=== PATIENT | female | born 1995 | race Caucasian/White ===

== ENCOUNTER 2016-07-15 09:29 | Outpatient (RCR) | payer MEDICARE, MEDICAID, SELFPAY | END 2016-08-03 | LOC: PHYS 09:29 | PROVIDERS: Family Provider Family Medicine; PCP Family Medicine; Referring Provider Podiatrist; Visit Provider Podiatrist | DX: M72.2 Plantar fascial fibromatosis (principal) | CPT/HCPCS: 97035; 97110; 97140; 97161; G8978; G8979 ==

== ENCOUNTER 2017-08-23 16:09 | Emergency (ER) | payer MEDICARE, MEDICAID, SELFPAY ==
[2017-08-23 16:14] VITALS: BP 127/75; PULSE 93; RESP 22; O2SAT 100
--- NOTE | 2017-08-23 16:39 | ED.ABDPAIN ---
HPI - Abdominal Pain <Radha AlejandreANDREWP-BC - Last Filed: 08/23/17 23:10> General Chief Complaint: Abdominal Pain Stated Complaint: POSSIBLE CYST BURST Time Seen by Provider: 08/23/17 16:20 Source: patient and family Mode of arrival: ambulatory Limitations: no limitations History of Present Illness HPI narrative: Patient presented with chief complaint of lower abdominal pain. This started approximately 2-3 p.m.. His history of ovarian cyst and feel like this may be another one. She denies any fevers, cough, shortness of breath or congestion. She denies any other abdominal pain other than her lower stomach. She states the pain is on the right side into the center. She denies any vaginal bleeding, vaginal itching or urinary symptoms. Although she does state was hard to urinate earlier today because of the pain. She denies any frequency, urgency or hesitancy. She has history of an appendectomy. She does state she had unprotected sex a few weeks ago. Related Data Home Medications Medication Instructions Recorded Confirmed albuterol sulfate [Proventil HFA] 1 puff INH PRN #17 gm 11/04/11 08/23/17 ibuprofen 200 mg PO PRN PRN #0 11/24/12 08/23/17 norgestimate-ethinyl estradiol 1 tab PO QDAY #0 12/06/16 08/23/17 [Sprintec (28)] dexamethasone 0.25 mg PO HS 08/23/17 08/23/17 hydrocortisone 25 mg PO DAILY 08/23/17 08/23/17 Previous Rx's Medication Instructions Recorded levothyroxine 0.088 mg PO QDAY #90 tab 12/27/16 ondansetron 4 mg SUBLINGUAL Q4HP PRN #60 odt 12/27/16 hydrocortisone sod succ (PF) 100 mg IV PRN #1 vial 03/21/17 [Solu-Cortef (PF)] mupirocin 1 devyn TOPICAL BID #22 gm 03/21/17 rizatriptan [Maxalt] 10 mg PO QDAY #10 tab 03/21/17 sertraline 200 mg PO QDAY #60 tab 06/12/17 nitrofurantoin macrocrystal 100 mg PO BID 7 Days #14 cap 08/23/17 oxycodone 5 mg PO Q4-6H PRN #10 tab 08/23/17 Allergies Allergy/AdvReac Type Severity Reaction Status Date / Time hydromorphone [HYDROMORPHONE] Allergy Mild RESP Verified 08/23/17 16:18 DISTRESS adhesive tape Allergy Unknown Rash Verified 08/23/17 16:43 Review of Systems <Radha [facility] - Last Filed: 08/23/17 23:10> Review of Systems GENERAL: See HPI HEENT: Denies sinus pain, ear pain, sore throat, difficulty swallowing, dizziness. RESPIRATORY: Denies dyspnea, cough, wheezing, hemoptysis, sputum. CARDIOVASCULAR: Denies chest pain, palpitations, orthopnea, edema, GASTROINTESTINAL: See HPI : See HPI n. MUSCULOSKELETAL: denies weakness, joint pain, or bony pain SKIN: Denies rash, skin lesions, or other NEUROLOGIC: Denies weakness, headache, numbness, change in speech, confusion, seizures, incoordination. PSYCHIATRIC: No concerning psychosocial issues. 12 point review of systems is negative except for those stated above Exam <[facility] - Last Filed: 08/23/17 23:10> Narrative Exam Narrative: GENERAL: This is a well-nourished, well-developed patient, crying HEAD: Atraumatic. Normocephalic. No temporal or scalp tenderness. EYES: Pupils equal round and reactive. Extraocular motions intact. No scleral icterus. No injection or drainage. ENT: Nose without bleeding, purulent drainage or septal hematoma. Throat without erythema, tonsillar hypertrophy or exudate. Uvula midline. Airway patent. NECK: Trachea midline. No JVD or lymphadenopathy. Supple, nontender, no meningeal signs. CARDIOVASCULAR: Regular rate and rhythm without murmurs, gallops, or rubs. RESPIRATORY: Clear to auscultation. Breath sounds equal bilaterally. No wheezes, rales, or rhonchi. GASTROINTESTINAL: Abdomen soft, no guarding. Generalized pain to palpation lower right and lower left quadrants. No CVA tenderness. Bowel sounds active all 4 quadrants. EXTREMITIES: No clubbing, cyanosis, or edema. No joint tenderness, effusion, or edema noted. BACK: Nontender without deformity or crepitance. No flank tenderness. NEURO: AOx3. SKIN: No rash or erythema. Patient declined pelvic exam. Initial Vital Signs Initial Vital Signs: Vital Signs Pulse Rate 93 H 08/23/17 16:14 Respiratory Rate 22 08/23/17 16:14 Blood Pressure 127/75 H 08/23/17 16:14 Pulse Oximetry 100 08/23/17 16:14 <Kimo Smith DO - Last Filed: 08/24/17 07:00> Initial Vital Signs Initial Vital Signs: Vital Signs Pulse Rate 93 H 08/23/17 16:14 Respiratory Rate 22 08/23/17 16:14 Blood Pressure 127/75 H 08/23/17 16:14 Pulse Oximetry 100 08/23/17 16:14 Course <Radha Alejandre [employer]-BC - Last Filed: 08/23/17 23:10> Hospital Course: Patient presents with lower abdominal pain. She had an IV inserted and received morphine for pain which helped a lot. A UA was obtained. A CBC CMP and lipase were drawn. WBCs noted to be slightly elevated. Urine GC and Chlamydia were completed and negative.. A urinalysis was completed and was concerning for an infection. A pelvic ultrasound was done and concerning for hemorrhagic cyst.. The patient received a L of IVF as well as two doses of morphine in her stay. I checked on the patient and mother several times throughout her emergency department stay. Patient declined pelvic exam. Patient also declined CT scan. They plan on following up with her primary care provider tomorrow. They had no questions or concerns upon discharge and stated understanding of return precautions including worsening pain, fever. Orders Ordered: Discontinued Medications Sodium Chloride (Normal Saline 0.9%) 1,000 mls @ 150 mls/hr IV CONT MO Last Infusion: 08/23/17 20:08 Dose: 150 mls/hr Admin: 08/23/17 17:14 Dose: 150 mls/hr Morphine Sulfate (Morphine) 2 mg IV NOW ONE Stop: 08/23/17 16:41 Last Admin: 08/23/17 17:14 Dose: 2 mg Morphine Sulfate (Morphine) 2 mg IV NOW ONE Stop: 08/23/17 18:30 Last Admin: 08/23/17 19:25 Dose: 2 mg Vital Signs - 8 hr 08/23/17 16:14 08/23/17 18:16 08/23/17 19:22 Pulse Rate 93 H 65 58 L Respiratory Rate 22 16 Blood Pressure 127/75 H Blood Pressure [Left Arm] 118/61 107/59 L Pulse Oximetry 100 100 97 08/23/17 20:00 Pulse Rate 54 L Respiratory Rate 15 Blood Pressure Blood Pressure [Left Arm] 112/46 L Pulse Oximetry 98 <Kimo Smith DO - Last Filed: 08/24/17 07:00> Orders Ordered: Discontinued Medications Sodium Chloride (Normal Saline 0.9%) 1,000 mls @ 150 mls/hr IV CONT MO Last Infusion: 08/23/17 20:08 Dose: 150 mls/hr Admin: 08/23/17 17:14 Dose: 150 mls/hr Morphine Sulfate (Morphine) 2 mg IV NOW ONE Stop: 08/23/17 16:41 Last Admin: 08/23/17 17:14 Dose: 2 mg Morphine Sulfate (Morphine) 2 mg IV NOW ONE Stop: 08/23/17 18:30 Last Admin: 08/23/17 19:25 Dose: 2 mg Vital Signs - 8 hr 08/23/17 16:14 08/23/17 18:16 08/23/17 19:22 Pulse Rate 93 H 65 58 L Respiratory Rate 22 16 Blood Pressure 127/75 H Blood Pressure [Left Arm] 118/61 107/59 L Pulse Oximetry 100 100 97 08/23/17 20:00 Pulse Rate 54 L Respiratory Rate 15 Blood Pressure Blood Pressure [Left Arm] 112/46 L Pulse Oximetry 98 MDM - Abdominal Pain <CAREN Motley- - Last Filed: 08/23/17 23:10> Differential Diagnosis Differential diagnosis: Likely abdominal pain and acute appendicitis Lab Data Attestation: I reviewed the patient's lab results. Result diagrams: 08/23/17 17:10 08/23/17 17:10 Lab Results 08/23/17 08/23/17 08/23/17 Range/Units 17:10 17:10 17:15 WBC 13.7 H (4.5-11.0) X10^3/uL RBC 4.85 (4.0-5.2) X10^6/uL Hgb 13.9 (12.0-16.0) g/dL Hct 41.2 (36-46) % MCV 84.9 (80-100) fL MCH 28.6 (26-34) PG MCHC 33.7 (30-36) % RDW 13.5 (11.6-14.8) % Plt Count 274 (150-400) X10^3/uL Neut % (Auto) 69.6 (50-75) % Lymph % (Auto) 20.4 L (25-40) % Gladwin % (Auto) 7.5 (3-14) % Eos % (Auto) 1.7 L (2-4) % Baso % (Auto) 0.8 (0-2) % Neut # (Auto) 9600 H (7317-8496) /uL Sodium 140 (137-145) mmol/L Potassium 4.2 (3.4-5.1) mmol/L Chloride 105 (98-107) mmol/L Carbon Dioxide 23 (22-32) mmol/L BUN 9 (7-17) mg/dL Creatinine 0.60 (0.52-1.04) mg/dL Estimated GFR > 60.0 (>60) mL/min BUN/Creatinine Ratio 15.0 (6-22) Glucose 94 (70-100) mg/dL Calcium 9.6 (8.4-10.2) mg/dL Total Bilirubin 0.7 (0.2-1.3) mg/dL AST 18 (14-36) IU/L ALT 16 (9-52) IU/L Alkaline Phosphatase 74 (38-126) U/L Total Protein 7.9 (6.3-8.2) g/dL Albumin 4.4 (3.5-5.0) g/dL Globulin 3.5 (1.7-4.1) g/dL Albumin/Globulin Ratio 1.3 (1.0-2.8) Lipase 63 (23-300) U/L Ur Chlamydia DNA (PCR) Not detected N gonorrhoeae DNA (PCR) Not detected Imaging Data US - abdomen: Radiologist's impression: View Report History [address] [address] Ultrasound Report Signed Patient: Slim Mckeon MR#: [id number] : 1995 Acct:[id number] Age/Sex: 21 / F Date of Service: 08/23/17 Loc: ED Accession Number: [id number] Procedure: US pelvic complete Ordering Provider: Radha Alejandre [employer]-BC PROCEDURE: US PELVIC COMPLETE INDICATIONS: RLQ pain TECHNIQUE: Real-time scanning was performed of the pelvic organs, with image documentation. Additional endovaginal scanning was necessary due to incomplete visualization of the adnexal and endometrial structures by transabdominal scanning. COMPARISON: [facility], CT, ABDOMEN/PELVIS WITH CONTRAST, 11/24/2012, 15:06. FINDINGS: Transabdominal scanning: Limited scanning through the kidneys shows no hydronephrosis. No pathologic free abdominal or pelvic fluid. Endovaginal scanning: Uterus: Uterus is normal in size at 7.0 x 3.4 x 4.4 cm. The endometrium measures 10 mm in combined thickness. Cervix is unremarkable. No focal myometrial lesions are evident. Ovaries: The right ovary is enlarged and measures 6.3 x 3.1 x 3.4 cm, related to an echogenic probable cystic structure of the right ovary that measures 3.2 x 2.2 x 3.2 cm. No internal vascularity is identified. The left ovary is borderline enlarged and measures 3.1 x 3.3 x 4.5 cm. Very small follicles are present. Other: A small amount of free fluid is seen within the pelvis, which is mildly echogenic. IMPRESSION: 1. Enlarged right ovary appears to be related to a probable hemorrhagic cyst. Followup pelvic ultrasound in 2-3 months is recommended. 2. Echogenic fluid within the pelvis may be physiologic. However, ruptured hemorrhagic cyst may also result in this appearance. The need for better evaluation utilizing CT may be determined clinically. Dictated by: Luis Enrique Chamberlain M.D. on 08/23/2017 at 17:57 Approved by: Luis Enrique Chamberlain M.D. on 08/23/2017 at 17:59 [facility] Narrative Medical decision making narrative: Patient presented with lower abdominal pain. Urine POC was negative. Her CBC was slightly elevated at 13.7. Otherwise her lab work was grossly normal. Her urine gonorrhea Chlamydia came back negative. Her pelvic ultrasound was concerning for a hemorrhagic ovarian cyst. Discussed at length free fluid in pelvis which could be physiologic due to ruptured cyst or another etiology. Mother and patient decline CT scan at this point time. Discussed at length return precautions including fever, worsening pain. Gave patient small prescription of oxycodone for pain control. Discussed monitoring for possible out torsion and being re-evaluated if pain becomes worse. Patient's urinalysis came back with many bacteria. Patient was started on Macrobid and urine culture was sent. Discussed at length return precautions of fever, flank pain nausea vomiting or diarrhea. Discussed at length reasons for pelvic exam and CT scan and patient declined both. Plan to follow up with primary care provider tomorrow. <Kimo Smith DO - Last Filed: 08/24/17 07:00> Lab Data Lab Results 08/23/17 08/23/17 08/23/17 Range/Units 17:10 17:10 17:15 WBC 13.7 H (4.5-11.0) X10^3/uL RBC 4.85 (4.0-5.2) X10^6/uL Hgb 13.9 (12.0-16.0) g/dL Hct 41.2 (36-46) % MCV 84.9 (80-100) fL MCH 28.6 (26-34) PG MCHC 33.7 (30-36) % RDW 13.5 (11.6-14.8) % Plt Count 274 (150-400) X10^3/uL Neut % (Auto) 69.6 (50-75) % Lymph % (Auto) 20.4 L (25-40) % Gladwin % (Auto) 7.5 (3-14) % Eos % (Auto) 1.7 L (2-4) % Baso % (Auto) 0.8 (0-2) % Neut # (Auto) 9600 H (5822-8388) /uL Sodium 140 (137-145) mmol/L Potassium 4.2 (3.4-5.1) mmol/L Chloride 105 (98-107) mmol/L Carbon Dioxide 23 (22-32) mmol/L BUN 9 (7-17) mg/dL Creatinine 0.60 (0.52-1.04) mg/dL Estimated GFR > 60.0 (>60) mL/min BUN/Creatinine Ratio 15.0 (6-22) Glucose 94 (70-100) mg/dL Calcium 9.6 (8.4-10.2) mg/dL Total Bilirubin 0.7 (0.2-1.3) mg/dL AST 18 (14-36) IU/L ALT 16 (9-52) IU/L Alkaline Phosphatase 74 (38-126) U/L Total Protein 7.9 (6.3-8.2) g/dL Albumin 4.4 (3.5-5.0) g/dL Globulin 3.5 (1.7-4.1) g/dL Albumin/Globulin Ratio 1.3 (1.0-2.8) Lipase 63 (23-300) U/L Ur Chlamydia DNA (PCR) Not detected N gonorrhoeae DNA (PCR) Not detected Discharge Plan Departure Patient Disposition: Home, Self-Care Clinical Impression: Urinary tract infection, Ovarian cyst Discharge Date/Time: 08/23/17 20:28 Interventions: ED Discharge Assessment Last Done: 08/23/17 20:37 Instructions: DI for Urinary Tract Infection (UTI), DI for Ovarian Cyst Activity Restrictions/Additional Instructions: I am starting you on a medication that is an antibiotic for a urinary tract infection. I am also giving her a small prescription of pain medication for your ovarian cyst. Please follow-up with her primary care provider. I would call them tomorrow. Today you declined a pelvic exam as well as a CT scan. If you have worsening pain, flank pain, fevers nausea vomiting diarrhea I would like you to be re-evaluated. We discussed the options of an ovarian torsion, Pelvic inflammatory disease, or kidney infection. If you are feeling worse or not feeling better, I would like you to follow up with her primary care provider or come back to the emergency department if needed. Be aware that the oxycodone can make you sleepy or constipated. Prescriptions: New nitrofurantoin macrocrystal 100 mg capsule 100 mg PO BID 7 Days Qty: 14 RF: 0 oxycodone 5 mg tablet 5 mg PO Q4-6H PRN (Reason: pain) Qty: 10 RF: 0 No Action albuterol sulfate [Proventil HFA] 90 MCG/PUFF HFA aerosol inhaler 1 puff INH PRN Qty: 17 RF: 0 ibuprofen 200 MG tablet 200 mg PO PRN PRN (Reason: Pain, Mild) Qty: 0 RF: 0 norgestimate-ethinyl estradiol [Sprintec (28)] 1 EACH tablet 1 tab PO QDAY Qty: 0 RF: 0 ondansetron 4 MG tablet,disintegrating 4 mg Sublingual Q4HP PRNQty: 60 RF: 3 levothyroxine 88 MCG tablet 0.088 mg PO QDAY Qty: 90 RF: 3 rizatriptan [Maxalt] 10 MG tablet 10 mg PO QDAY Qty: 10 RF: 0 mupirocin 2 % ointment 1 devyn Topical BID Qty: 22 RF: 0 hydrocortisone sod succ (PF) [Solu-Cortef (PF)] 100 MG/2 ML recon soln 100 mg IV PRN Qty: 1 RF: 0 sertraline 100 MG tablet 200 mg PO QDAY Qty: 60 RF: 0 hydrocortisone 5 MG tablet 25 mg PO DAILY RF: 0 dexamethasone 0.5 MG tablet 0.25 mg PO HS RF: 0 <Kimo Smith DO - Last Filed: 08/24/17 07:00> [facility] Kaveh Attestation: I was available for consultation during this patient's emergency department encounter
--- NOTE | 2017-08-23 16:42 | DI.US.S_ITS ---
PROCEDURE: US PELVIC COMPLETE INDICATIONS: RLQ pain TECHNIQUE: Real-time scanning was performed of the pelvic organs, with image documentation. Additional endovaginal scanning was necessary due to incomplete visualization of the adnexal and endometrial structures by transabdominal scanning. COMPARISON: [facility], CT, ABDOMEN/PELVIS WITH CONTRAST, 11/24/2012, 15:06. FINDINGS: Transabdominal scanning: Limited scanning through the kidneys shows no hydronephrosis. No pathologic free abdominal or pelvic fluid. Endovaginal scanning: Uterus: Uterus is normal in size at 7.0 x 3.4 x 4.4 cm. The endometrium measures 10 mm in combined thickness. Cervix is unremarkable. No focal myometrial lesions are evident. Ovaries: The right ovary is enlarged and measures 6.3 x 3.1 x 3.4 cm, related to an echogenic probable cystic structure of the right ovary that measures 3.2 x 2.2 x 3.2 cm. No internal vascularity is identified. The left ovary is borderline enlarged and measures 3.1 x 3.3 x 4.5 cm. Very small follicles are present. Other: A small amount of free fluid is seen within the pelvis, which is mildly echogenic. IMPRESSION: 1. Enlarged right ovary appears to be related to a probable hemorrhagic cyst. Followup pelvic ultrasound in 2-3 months is recommended. 2. Echogenic fluid within the pelvis may be physiologic. However, ruptured hemorrhagic cyst may also result in this appearance. The need for better evaluation utilizing CT may be determined clinically. Dictated by: Luis Enrique Chamberlain M.D. on 08/23/2017 at 17:57 Approved by: Luis Enrique Chamberlain M.D. on 08/23/2017 at 17:59
[2017-08-23] MEDS: SODIUM CHLORIDE 0.9% 1,000 ML 150 ML IV (17:14)
[2017-08-23] MEDS: MORPHINE 2 MG/ML INJ IV ×2 (17:14→19:25)
[2017-08-23 17:18] LABS: Add Manual Diff / Slide Review NO; Basophils Percent Auto 0.8 % (0-2); Eosinophils Percent Auto 1.7 % (2-4); Hematocrit 41.2 % (36-46); Hemoglobin 13.9 g/dL (12.0-16.0); Lymphocytes Percent Auto 20.4 % (25-40); Mean Corpuscular HGB Conc 33.7 % (30-36); Mean Corpuscular Hemoglobin 28.6 PG (26-34); Mean Corpuscular Volume 84.9 fL (80-100); Monocytes Percent Auto 7.5 % (3-14); Neutrophils Absolute Auto 9600 /uL (3000-5900); Neutrophils Percent Auto 69.6 % (50-75); Platelet Count 274 X10^3/uL (150-400); Red Blood Cell Count 4.85 X10^6/uL (4.0-5.2); Red Cell Distribution Width 13.5 % (11.6-14.8); White Blood Cell Count 13.7 X10^3/uL (4.5-11.0)
--- NOTE | 2017-08-23 17:25 | PC.NURSE ---
standby by with callie for US in room. pt tolerated well.
[2017-08-23 17:30] LABS: Alanine Aminotransferase 16 IU/L (9-52); Albumin 4.4 g/dL (3.5-5.0); Albumin Globulin Ratio 1.3 (1.0-2.8); Alkaline Phosphatase 74 U/L (38-126); Aspartate Aminotransferase 18 IU/L (14-36); Bilirubin Total 0.7 mg/dL (0.2-1.3); Blood Urea Nitrogen 9 mg/dL (7-17); Calcium 9.6 mg/dL (8.4-10.2); Carbon Dioxide 23 mmol/L (22-32); Chloride 105 mmol/L (98-107); Estimated Glomerular Filt Rate > 60.0 mL/min (>60); Globulin 3.5 g/dL (1.7-4.1); Glucose 94 mg/dL (70-100); HEMOLYSIS 31 (0-50); Lipase 63 U/L (23-300); Potassium 4.2 mmol/L (3.4-5.1); Sodium 140 mmol/L (137-145); Total Protein 7.9 g/dL (6.3-8.2)
--- NOTE | 2017-08-23 18:15 | PC.NURSE ---
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 denies vaginal discharges.
[2017-08-23 18:16] VITALS: BP 118/61; PULSE 65; RESP 16; O2SAT 100
[2017-08-23 18:52] LABS: Urine N gonorrhoeae NOT DETECTED
[2017-08-23 19:05] LABS: Urine Chlamydia NOT DETECTED
[2017-08-23 19:22] VITALS: BP 107/59; PULSE 58; O2SAT 97
[2017-08-23 20:00] VITALS: BP 112/46; PULSE 54; RESP 15; O2SAT 98
--- NOTE | 2017-08-23 20:07 | ED_ITS ---
HPI - Abdominal Pain <Radha AlejandreANDREWP-BC - Last Filed: 08/23/17 23:10> General Chief Complaint: Abdominal Pain Stated Complaint: POSSIBLE CYST BURST Time Seen by Provider: 08/23/17 16:20 Source: patient and family Mode of arrival: ambulatory Limitations: no limitations History of Present Illness HPI narrative: Patient presented with chief complaint of lower abdominal pain. This started approximately 2-3 p.m.. His history of ovarian cyst and feel like this may be another one. She denies any fevers, cough, shortness of breath or congestion. She denies any other abdominal pain other than her lower stomach. She states the pain is on the right side into the center. She denies any vaginal bleeding, vaginal itching or urinary symptoms. Although she does state was hard to urinate earlier today because of the pain. She denies any frequency , urgency or hesitancy. She has history of an appendectomy. She does state she had unprotected sex a few weeks ago. Related Data Home Medications Medication Instructions Recorded Confirmed albuterol sulfate [Proventil HFA] 1 puff INH PRN #17 gm 11/04/11 08/23/17 ibuprofen 200 mg PO PRN PRN #0 11/24/12 08/23/17 norgestimate-ethinyl estradiol 1 tab PO QDAY #0 12/06/16 08/23/17 [Sprintec (28)] dexamethasone 0.25 mg PO HS 08/23/17 08/23/17 hydrocortisone 25 mg PO DAILY 08/23/17 08/23/17 Previous Rx's Medication Instructions Recorded levothyroxine 0.088 mg PO QDAY #90 tab 12/27/16 ondansetron 4 mg SUBLINGUAL Q4HP PRN #60 odt 12/27/16 hydrocortisone sod succ (PF) 100 mg IV PRN #1 vial 03/21/17 [Solu-Cortef (PF)] mupirocin 1 devyn TOPICAL BID #22 gm 03/21/17 rizatriptan [Maxalt] 10 mg PO QDAY #10 tab 03/21/17 sertraline 200 mg PO QDAY #60 tab 06/12/17 nitrofurantoin macrocrystal 100 mg PO BID 7 Days #14 cap 08/23/17 oxycodone 5 mg PO Q4-6H PRN #10 tab 08/23/17 Allergies Allergy/AdvReac Type Severity Reaction Status Date / Time hydromorphone [HYDROMORPHONE] Allergy Mild RESP Verified 08/23/17 16:18 DISTRESS adhesive tape Allergy Unknown Rash Verified 08/23/17 16:43 Review of Systems <Radha CAR[facility] - Last Filed: 08/23/17 23:10> Review of Systems GENERAL: See HPI HEENT: Denies sinus pain, ear pain, sore throat, difficulty swallowing, dizziness. RESPIRATORY: Denies dyspnea, cough, wheezing, hemoptysis, sputum. CARDIOVASCULAR: Denies chest pain, palpitations, orthopnea, edema, GASTROINTESTINAL: See HPI : See HPI n. MUSCULOSKELETAL: denies weakness, joint pain, or bony pain SKIN: Denies rash, skin lesions, or other NEUROLOGIC: Denies weakness, headache, numbness, change in speech, confusion, seizures, incoordination. PSYCHIATRIC: No concerning psychosocial issues. 12 point review of systems is negative except for those stated above Exam <[facility] - Last Filed: 08/23/17 23:10> Narrative Exam Narrative: GENERAL: This is a well-nourished, well-developed patient, crying HEAD: Atraumatic. Normocephalic. No temporal or scalp tenderness. EYES: Pupils equal round and reactive. Extraocular motions intact. No scleral icterus. No injection or drainage. ENT: Nose without bleeding, purulent drainage or septal hematoma. Throat without erythema, tonsillar hypertrophy or exudate. Uvula midline. Airway patent. NECK: Trachea midline. No JVD or lymphadenopathy. Supple, nontender, no meningeal signs. CARDIOVASCULAR: Regular rate and rhythm without murmurs, gallops, or rubs. RESPIRATORY: Clear to auscultation. Breath sounds equal bilaterally. No wheezes , rales, or rhonchi. GASTROINTESTINAL: Abdomen soft, no guarding. Generalized pain to palpation lower right and lower left quadrants. No CVA tenderness. Bowel sounds active all 4 quadrants. EXTREMITIES: No clubbing, cyanosis, or edema. No joint tenderness, effusion, or edema noted. BACK: Nontender without deformity or crepitance. No flank tenderness. NEURO: AOx3. SKIN: No rash or erythema. Patient declined pelvic exam. Initial Vital Signs Initial Vital Signs: Vital Signs Pulse Rate 93 H 08/23/17 16:14 Respiratory Rate 22 08/23/17 16:14 Blood Pressure 127/75 H 08/23/17 16:14 Pulse Oximetry 100 08/23/17 16:14 <Kimo Smith DO - Last Filed: 08/24/17 07:00> Initial Vital Signs Initial Vital Signs: Vital Signs Pulse Rate 93 H 08/23/17 16:14 Respiratory Rate 22 08/23/17 16:14 Blood Pressure 127/75 H 08/23/17 16:14 Pulse Oximetry 100 08/23/17 16:14 Course <Radha Alejandre [employer]-BC - Last Filed: 08/23/17 23:10> Hospital Course: Patient presents with lower abdominal pain. She had an IV inserted and received morphine for pain which helped a lot. A UA was obtained. A CBC CMP and lipase were drawn. WBCs noted to be slightly elevated. Urine GC and Chlamydia were completed and negative.. A urinalysis was completed and was concerning for an infection. A pelvic ultrasound was done and concerning for hemorrhagic cyst.. The patient received a L of IVF as well as two doses of morphine in her stay. I checked on the patient and mother several times throughout her emergency department stay. Patient declined pelvic exam. Patient also declined CT scan. They plan on following up with her primary care provider tomorrow. They had no questions or concerns upon discharge and stated understanding of return precautions including worsening pain, fever. Orders Ordered: Discontinued Medications Sodium Chloride (Normal Saline 0.9%) 1,000 mls @ 150 mls/hr IV CONT MO Last Infusion: 08/23/17 20:08 Dose: 150 mls/hr Admin: 08/23/17 17:14 Dose: 150 mls/hr Morphine Sulfate (Morphine) 2 mg IV NOW ONE Stop: 08/23/17 16:41 Last Admin: 08/23/17 17:14 Dose: 2 mg Morphine Sulfate (Morphine) 2 mg IV NOW ONE Stop: 08/23/17 18:30 Last Admin: 08/23/17 19:25 Dose: 2 mg Vital Signs - 8 hr 08/23/17 16:14 08/23/17 18:16 08/23/17 19:22 Pulse Rate 93 H 65 58 L Respiratory Rate 22 16 Blood Pressure 127/75 H Blood Pressure [Left Arm] 118/61 107/59 L Pulse Oximetry 100 100 97 08/23/17 20:00 Pulse Rate 54 L Respiratory Rate 15 Blood Pressure Blood Pressure [Left Arm] 112/46 L Pulse Oximetry 98 <Kimo Smith DO - Last Filed: 08/24/17 07:00> Orders Ordered: Discontinued Medications Sodium Chloride (Normal Saline 0.9%) 1,000 mls @ 150 mls/hr IV CONT MO Last Infusion: 08/23/17 20:08 Dose: 150 mls/hr Admin: 08/23/17 17:14 Dose: 150 mls/hr Morphine Sulfate (Morphine) 2 mg IV NOW ONE Stop: 08/23/17 16:41 Last Admin: 08/23/17 17:14 Dose: 2 mg Morphine Sulfate (Morphine) 2 mg IV NOW ONE Stop: 08/23/17 18:30 Last Admin: 08/23/17 19:25 Dose: 2 mg Vital Signs - 8 hr 08/23/17 16:14 08/23/17 18:16 08/23/17 19:22 Pulse Rate 93 H 65 58 L Respiratory Rate 22 16 Blood Pressure 127/75 H Blood Pressure [Left Arm] 118/61 107/59 L Pulse Oximetry 100 100 97 08/23/17 20:00 Pulse Rate 54 L Respiratory Rate 15 Blood Pressure Blood Pressure [Left Arm] 112/46 L Pulse Oximetry 98 MDM - Abdominal Pain <CAREN Motley- - Last Filed: 08/23/17 23:10> Differential Diagnosis Differential diagnosis: Likely abdominal pain and acute appendicitis Lab Data Attestation: I reviewed the patient's lab results. Result diagrams: 08/23/17 17:10 08/23/17 17:10 Lab Results 08/23/17 08/23/17 08/23/17 Range/Units 17:10 17:10 17:15 WBC 13.7 H (4.5-11.0) X10^3/uL RBC 4.85 (4.0-5.2) X10^6/uL Hgb 13.9 (12.0-16.0) g/dL Hct 41.2 (36-46) % MCV 84.9 (80-100) fL MCH 28.6 (26-34) PG MCHC 33.7 (30-36) % RDW 13.5 (11.6-14.8) % Plt Count 274 (150-400) X10^3/uL Neut % (Auto) 69.6 (50-75) % Lymph % (Auto) 20.4 L (25-40) % [place] % (Auto) 7.5 (3-14) % Eos % (Auto) 1.7 L (2-4) % Baso % (Auto) 0.8 (0-2) % Neut # (Auto) 9600 H (9511-2008) /uL Sodium 140 (137-145) mmol/L Potassium 4.2 (3.4-5.1) mmol/L Chloride 105 (98-107) mmol/L Carbon Dioxide 23 (22-32) mmol/L BUN 9 (7-17) mg/dL Creatinine 0.60 (0.52-1.04) mg/dL Estimated GFR > 60.0 (>60) mL/min BUN/Creatinine Ratio 15.0 (6-22) Glucose 94 (70-100) mg/dL Calcium 9.6 (8.4-10.2) mg/dL Total Bilirubin 0.7 (0.2-1.3) mg/dL AST 18 (14-36) IU/L ALT 16 (9-52) IU/L Alkaline Phosphatase 74 (38-126) U/L Total Protein 7.9 (6.3-8.2) g/dL Albumin 4.4 (3.5-5.0) g/dL Globulin 3.5 (1.7-4.1) g/dL Albumin/Globulin Ratio 1.3 (1.0-2.8) Lipase 63 (23-300) U/L Ur Chlamydia DNA (PCR) Not detected N gonorrhoeae DNA (PCR) Not detected Imaging Data US - abdomen: Radiologist's impression: View Report History [address] [address] Ultrasound Report Signed Patient: Slim Mckeon MR#: [id number] : 1995 Acct:[id number] Age/Sex: 21 / F Date of Service: 08/23/17 Loc: ED Accession Number: [id number] Procedure: US pelvic complete Ordering Provider: Radha Alejandre [employer]-BC PROCEDURE: US PELVIC COMPLETE INDICATIONS: RLQ pain TECHNIQUE: Real-time scanning was performed of the pelvic organs, with image documentation. Additional endovaginal scanning was necessary due to incomplete visualization of the adnexal and endometrial structures by transabdominal scanning. COMPARISON: [facility], CT, ABDOMEN/PELVIS WITH CONTRAST, 11/24/2012, 15: 06. FINDINGS: Transabdominal scanning: Limited scanning through the kidneys shows no hydronephrosis. No pathologic free abdominal or pelvic fluid. Endovaginal scanning: Uterus: Uterus is normal in size at 7.0 x 3.4 x 4.4 cm. The endometrium measures 10 mm in combined thickness. Cervix is unremarkable. No focal myometrial lesions are evident. Ovaries: The right ovary is enlarged and measures 6.3 x 3.1 x 3.4 cm, related to an echogenic probable cystic structure of the right ovary that measures 3.2 x 2.2 x 3.2 cm. No internal vascularity is identified. The left ovary is borderline enlarged and measures 3.1 x 3.3 x 4.5 cm. Very small follicles are present. Other: A small amount of free fluid is seen within the pelvis, which is mildly echogenic. IMPRESSION: 1. Enlarged right ovary appears to be related to a probable hemorrhagic cyst. Followup pelvic ultrasound in 2-3 months is recommended. 2. Echogenic fluid within the pelvis may be physiologic. However, ruptured hemorrhagic cyst may also result in this appearance. The need for better evaluation utilizing CT may be determined clinically. Dictated by: Luis Enrique Chamberlain M.D. on 08/23/2017 at 17:57 Approved by: Luis Enrique Chamberlain M.D. on 08/23/2017 at 17:59 [facility] Narrative Medical decision making narrative: Patient presented with lower abdominal pain. Urine POC was negative. Her CBC was slightly elevated at 13.7. Otherwise her lab work was grossly normal. Her urine gonorrhea Chlamydia came back negative. Her pelvic ultrasound was concerning for a hemorrhagic ovarian cyst. Discussed at length free fluid in pelvis which could be physiologic due to ruptured cyst or another etiology. Mother and patient decline CT scan at this point time. Discussed at length return precautions including fever, worsening pain. Gave patient small prescription of oxycodone for pain control. Discussed monitoring for possible out torsion and being re-evaluated if pain becomes worse. Patient' s urinalysis came back with many bacteria. Patient was started on Macrobid and urine culture was sent. Discussed at length return precautions of fever, flank pain nausea vomiting or diarrhea. Discussed at length reasons for pelvic exam and CT scan and patient declined both. Plan to follow up with primary care provider tomorrow. <Kimo Smith DO - Last Filed: 08/24/17 07:00> Lab Data Lab Results 08/23/17 08/23/17 08/23/17 Range/Units 17:10 17:10 17:15 WBC 13.7 H (4.5-11.0) X10^3/uL RBC 4.85 (4.0-5.2) X10^6/uL Hgb 13.9 (12.0-16.0) g/dL Hct 41.2 (36-46) % MCV 84.9 (80-100) fL MCH 28.6 (26-34) PG MCHC 33.7 (30-36) % RDW 13.5 (11.6-14.8) % Plt Count 274 (150-400) X10^3/uL Neut % (Auto) 69.6 (50-75) % Lymph % (Auto) 20.4 L (25-40) % [place]ilton % (Auto) 7.5 (3-14) % Eos % (Auto) 1.7 L (2-4) % Baso % (Auto) 0.8 (0-2) % Neut # (Auto) 9600 H (6491-8291) /uL Sodium 140 (137-145) mmol/L Potassium 4.2 (3.4-5.1) mmol/L Chloride 105 (98-107) mmol/L Carbon Dioxide 23 (22-32) mmol/L BUN 9 (7-17) mg/dL Creatinine 0.60 (0.52-1.04) mg/dL Estimated GFR > 60.0 (>60) mL/min BUN/Creatinine Ratio 15.0 (6-22) Glucose 94 (70-100) mg/dL Calcium 9.6 (8.4-10.2) mg/dL Total Bilirubin 0.7 (0.2-1.3) mg/dL AST 18 (14-36) IU/L ALT 16 (9-52) IU/L Alkaline Phosphatase 74 (38-126) U/L Total Protein 7.9 (6.3-8.2) g/dL Albumin 4.4 (3.5-5.0) g/dL Globulin 3.5 (1.7-4.1) g/dL Albumin/Globulin Ratio 1.3 (1.0-2.8) Lipase 63 (23-300) U/L Ur Chlamydia DNA (PCR) Not detected N gonorrhoeae DNA (PCR) Not detected Discharge Plan Departure Patient Disposition: Home, Self-Care Clinical Impression: Urinary tract infection, Ovarian cyst Discharge Date/Time: 08/23/17 20:28 Interventions: ED Discharge Assessment Last Done: 08/23/17 20:37 Instructions: DI for Urinary Tract Infection (UTI), DI for Ovarian Cyst Activity Restrictions/Additional Instructions: I am starting you on a medication that is an antibiotic for a urinary tract infection. I am also giving her a small prescription of pain medication for your ovarian cyst. Please follow-up with her primary care provider. I would call them tomorrow. Today you declined a pelvic exam as well as a CT scan. If you have worsening pain, flank pain, fevers nausea vomiting diarrhea I would like you to be re-evaluated. We discussed the options of an ovarian torsion, Pelvic inflammatory disease, or kidney infection. If you are feeling worse or not feeling better, I would like you to follow up with her primary care provider or come back to the emergency department if needed. Be aware that the oxycodone can make you sleepy or constipated. Prescriptions: New nitrofurantoin macrocrystal 100 mg capsule 100 mg PO BID 7 Days Qty: 14 RF: 0 oxycodone 5 mg tablet 5 mg PO Q4-6H PRN (Reason: pain) Qty: 10 RF: 0 No Action albuterol sulfate [Proventil HFA] 90 MCG/PUFF HFA aerosol inhaler 1 puff INH PRN Qty: 17 RF: 0 ibuprofen 200 MG tablet 200 mg PO PRN PRN (Reason: Pain, Mild) Qty: 0 RF: 0 norgestimate-ethinyl estradiol [Sprintec (28)] 1 EACH tablet 1 tab PO QDAY Qty: 0 RF: 0 ondansetron 4 MG tablet,disintegrating 4 mg Sublingual Q4HP PRNQty: 60 RF: 3 levothyroxine 88 MCG tablet 0.088 mg PO QDAY Qty: 90 RF: 3 rizatriptan [Maxalt] 10 MG tablet 10 mg PO QDAY Qty: 10 RF: 0 mupirocin 2 % ointment 1 devyn Topical BID Qty: 22 RF: 0 hydrocortisone sod succ (PF) [Solu-Cortef (PF)] 100 MG/2 ML recon soln 100 mg IV PRN Qty: 1 RF: 0 sertraline 100 MG tablet 200 mg PO QDAY Qty: 60 RF: 0 hydrocortisone 5 MG tablet 25 mg PO DAILY RF: 0 dexamethasone 0.5 MG tablet 0.25 mg PO HS RF: 0 <Kimo Smith DO - Last Filed: 08/24/17 07:00> [facility]h Attestation: I was available for consultation during this patient's emergency department encounter
== END 2017-08-23 20:28 | disposition home or self-care (01) ==
PROVIDERS: Emergency Provider Nurse Practitioner Family; Family Provider Family Medicine; PCP Family Medicine
DX: N39.0 Urinary tract infection, site not specified (principal); N83.209 Unspecified ovarian cyst, unspecified side
CPT/HCPCS: 36591; 76856; 80053; 81003; 81025; 83690; 85025; 87491; 87591; 96374; 96376; 99283; 99284; J2270

== ENCOUNTER → 2017-09-01 11:32 | Outpatient (CLI) | payer MEDICARE, MEDICAID, SELFPAY ==
--- NOTE | 2017-09-01 | DI.CT.S_ITS ---
PROCEDURE: CT ABDOMEN PELVIS W CON INDICATIONS: 21 year-old female with right lower quadrant abdominal pain, and possible hemoperitoneum on recent ultrasound. TECHNIQUE: After the administration of oral and intravenous contrast, 5 mm thick sections acquired from the diaphragms to the symphysis. 5 mm thick coronal and sagittal reformats were performed. For radiation dose reduction, the following was used: automated exposure control, adjustment of mA and/or kV according to patient size. COMPARISON: [facility], US, US PELVIC COMPLETE, 08/23/2017, 16:56. [facility], CT, ABDOMEN/PELVIS WITH CONTRAST, 11/24/2012, 15:06. FINDINGS: Image quality: Excellent. ABDOMEN: Lung bases: Lung bases are clear. Heart size is normal. Solid organs: Liver is normal in size and enhancement. Gallbladder wall thickness is normal. Biliary system is non-dilated. Pancreas enhances normally. Spleen is normal in size and enhancement. No adrenal nodules. Kidneys are normal in size and enhancement, without hydronephrosis. 3 mm nonobstructing right renal stone is present. Peritoneum and bowel: Stomach, small bowel, and colon loops are normal in caliber and wall thickness. Patient is status post interval appendectomy. No free fluid or air. Nodes and vessels: No retroperitoneal or mesenteric adenopathy. Aorta and inferior vena cava are normal in caliber. Miscellaneous: No ventral hernias. PELVIS: Genitourinary: Bladder wall thickness is normal. Uterus and ovaries are normal in size. Miscellaneous: No inguinal hernias or adenopathy. Bones: No suspicious bony lesions. No vertebral body compression fractures. Bilateral L5 pars defects are present, without L5-S1 spondylolisthesis. IMPRESSION: 1. Previously noted free pelvic fluid has resolved. 2. Nonobstructing 3 mm right renal stone. 3. Bilateral L5 pars defects, without L5-S1 spondylolisthesis. Dictated by: Jayme Richey M.D. on 09/01/2017 at 13:52 Approved by: Jayme Richey M.D. on 09/01/2017 at 14:01
[2017-09-01 12:17] LABS: Add Manual Diff / Slide Review NO; Basophils Percent Auto 0.9 % (0-2); Eosinophils Percent Auto 1.9 % (2-4); Hematocrit 43.8 % (36-46); Hemoglobin 14.7 g/dL (12.0-16.0); Mean Corpuscular HGB Conc 33.5 % (30-36); Mean Corpuscular Hemoglobin 28.7 PG (26-34); Mean Corpuscular Volume 85.6 fL (80-100); Monocytes Percent Auto 6.7 % (3-14); Neutrophils Absolute Auto 7300 /uL (3000-5900); Neutrophils Percent Auto 66.5 % (50-75); Platelet Count 267 X10^3/uL (150-400); Red Blood Cell Count 5.12 X10^6/uL (4.0-5.2); Red Cell Distribution Width 13.5 % (11.6-14.8)
[2017-09-01 12:38] LABS: Alanine Aminotransferase 23 IU/L (9-52); Albumin 4.5 g/dL (3.5-5.0); Albumin Globulin Ratio 1.3 (1.0-2.8); Alkaline Phosphatase 83 U/L (38-126); Aspartate Aminotransferase 14 IU/L (14-36); BUN Creatinine Ratio 18.3 (6-22); Bilirubin Total 0.9 mg/dL (0.2-1.3); Blood Urea Nitrogen 11 mg/dL (7-17); Calcium 9.7 mg/dL (8.4-10.2); Carbon Dioxide 25 mmol/L (22-32); Chloride 103 mmol/L (98-107); Estimated Glomerular Filt Rate > 60.0 mL/min (>60); Globulin 3.4 g/dL (1.7-4.1); Glucose 98 mg/dL (70-100); HEMOLYSIS < 15 (0-50); Potassium 4.2 mmol/L (3.4-5.1); Sodium 141 mmol/L (137-145); Total Protein 7.9 g/dL (6.3-8.2)
[2017-09-01 12:55] LABS: Free T3, Triiodothyronine Free 3.68 pg/mL (2.77-5.27); Free T4, Direct Thyroxine 1.03 ng/dL (0.78-2.19)
[2017-09-01 13:09] LABS: Thyroid Stimulating Hormone 1.34 uIU/mL (0.47-4.68)
[2017-09-02 18:50] LABS: HIV Ag/Ab, 4th Gen Nonreactive (Nonreactive)
[2017-09-08 13:59] LABS: Rapid Plasma Reagin NON-REACTIVE
== END ==
PROVIDERS: PCP Nurse Practitioner Family; Visit Provider Nurse Practitioner Family
DX: R10.31 Right lower quadrant pain (principal); N20.0 Calculus of kidney; M47.9 Spondylosis, unspecified; F32.9 Major depressive disorder, single episode, unspecified; E03.9 Hypothyroidism, unspecified; Z20.9 Contact with and (suspected) exposure to unspecified communicable disease
CPT/HCPCS: 36415; 74177; 80053; 84439; 84443; 84481; 85025; 86592; 86703; Q9967

== ENCOUNTER 2017-09-07 04:15 | Emergency (ER) | payer MEDICARE, MEDICAID, SELFPAY ==
[2017-09-07 04:33] VITALS: BP 113/64; PULSE 56; RESP 16; TEMP 36.7
[2017-09-07 05:00] VITALS: BP 113/72; PULSE 56; RESP 16; TEMP 36.7; O2SAT 98
[2017-09-07 05:03] VITALS: BP 113/72; PULSE 56; RESP 16; TEMP 36.7; O2SAT 98
[2017-09-07 05:45] VITALS: BP 119/58; PULSE 55; RESP 14; TEMP 36.6; O2SAT 96
[2017-09-07] MEDS: SODIUM CHLORIDE 0.9% 1,000 ML 1000 ML IV (06:10)
--- NOTE | 2017-09-07 06:26 | PC.NURSE ---
pt. assessment complete, - n/v/d since arriving to ED. orders complete and blood sent to lab, NS hanging without evidence of infiltration or irritation at site.
[2017-09-07 06:29] LABS: Add Manual Diff / Slide Review NO; Basophils Percent Auto 1.2 % (0-2); Eosinophils Percent Auto 3.2 % (2-4); Hematocrit 41.7 % (36-46); Hemoglobin 13.8 g/dL (12.0-16.0); Lymphocytes Percent Auto 30.1 % (25-40); Mean Corpuscular Hemoglobin 28.5 PG (26-34); Mean Corpuscular Volume 86.3 fL (80-100); Neutrophils Absolute Auto 7500 /uL (3000-5900); Neutrophils Percent Auto 57.5 % (50-75); Platelet Count 273 X10^3/uL (150-400); Red Blood Cell Count 4.83 X10^6/uL (4.0-5.2); Red Cell Distribution Width 13.5 % (11.6-14.8)
[2017-09-07 06:40] LABS: Lactate (Lactic Acid) 2.4 mmol/L (0.7-2.1)
[2017-09-07 06:41] LABS: Alanine Aminotransferase 15 IU/L (9-52); Albumin Globulin Ratio 1.3 (1.0-2.8); Alkaline Phosphatase 76 U/L (38-126); Aspartate Aminotransferase 21 IU/L (14-36); Bilirubin Total 0.5 mg/dL (0.2-1.3); Blood Urea Nitrogen 15 mg/dL (7-17); Calcium 8.9 mg/dL (8.4-10.2); Carbon Dioxide 27 mmol/L (22-32); Chloride 102 mmol/L (98-107); Estimated Glomerular Filt Rate > 60.0 mL/min (>60); Globulin 3.1 g/dL (1.7-4.1); Glucose 99 mg/dL (70-100); Sodium 142 mmol/L (137-145); Total Protein 7.1 g/dL (6.3-8.2)
[2017-09-07 06:42] LABS: Lipase 81 U/L (23-300); Magnesium 1.8 mg/dL (1.6-2.3)
[2017-09-07 06:44] LABS: HEMOLYSIS 60 (0-50)
[2017-09-07 06:45] LABS: Potassium 4.2 mmol/L (3.4-5.1)
[2017-09-07 06:53] LABS: Procalcitonin < 0.05 ng/mL (<0.5)
[2017-09-07 06:57] LABS: Free T4, Direct Thyroxine 0.88 ng/dL (0.78-2.19)
[2017-09-07 07:11] LABS: Cortisol Random 9.38 ug/dL; Thyroid Stimulating Hormone 3.26 uIU/mL (0.47-4.68)
--- NOTE | 2017-09-07 07:19 | ED_ITS ---
HPI - Back Pain/Injury General Chief Complaint: Back Pain/Injury Stated Complaint: woke up with adrenal crisis per mom History of Present Illness HPI Narrative: HPI 21-year-old female with a history of adrenal insufficiency presents with her mother for evaluation of nausea, vomiting, and malaise that the mother believes is concerning for an impending adrenal crisis. Patient reports that she went out with friends for the September, is unable to further characterize September events. Patient notes mild flank pain, denies dysuria, urinary frequency. 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 ROS: Negative constitutional, eye, cardiovascular, pulmonary, GI, , MSK, skin , neurologic, psychiatric, endocrine unless noted in the HPI. Exam Gen:, nontoxic-appearing, appears to be mildly fatigued/sedate, otherwise resting comfortably. HEENT: NC, AT, PEERL, EOMI. Resp: Clear to auscultation bilaterally, normal work of breathing, no accessory muscle usage. Card: Regular rate and rhythm with no murmurs, rubs, or gallops, extremities warm and well perfused. GI: Non-tender to palpation throughout all quadrants, no focal tenderness at McBurney's point, negative Parikh's sign, non-distended, no rebound or guarding. : No suprapubic tenderness to palpation. MSK: No visible deformities, strength and tone without visually appreciable deficit. Skin: Normal color with no visible lesions. Neuro: AO x 3, no facial asymmetry, vision and hearing WNL. Psych: unusual mood and affect. Labs / Imaging: WBC 11.0, Hb 14.7, Na 142, K .2, total bilirubin 0.5, AST 21, ALT 15, ALP 86, lipase 81, TSH pending, free T4 pending, random cortisol pending, UA pending, EtOH pending MDM Previous chart, nursing note, labs, imaging, and vitals reviewed. A: 21-year-old female with a history of adrenal insufficiency presents with her mother for evaluation of nausea, vomiting, and malaise that the mother believes is concerning for an impending adrenal crisis. DDx: dehydration, intoxication, electrolyte abnormalities, adrenal insufficiency , myxedema coma, UTI, Evaluation: VSS and within acceptable limits. 1 L NS given. Patient care transferred to Dr. Menjivar pending completion of evaluation. Impression: malaise. (please reference below for remainder of encounter information) Related Data Home Medications Medication Instructions Recorded Confirmed albuterol sulfate [Proventil HFA] 1 puff INH PRN #17 gm 11/04/11 08/23/17 ibuprofen 200 mg PO PRN PRN #0 11/24/12 08/23/17 norgestimate-ethinyl estradiol 1 tab PO QDAY #0 12/06/16 08/23/17 [Sprintec (28)] dexamethasone 0.25 mg PO HS 08/23/17 09/07/17 hydrocortisone 25 mg PO DAILY 08/23/17 09/07/17 ondansetron 4 mg SUBLINGUAL Q4HP PRN 09/07/17 09/07/17 Previous Rx's Medication Instructions Recorded levothyroxine 0.088 mg PO QDAY #90 tab 12/27/16 hydrocortisone sod succ (PF) 100 mg IV PRN #1 vial 03/21/17 [Solu-Cortef (PF)] mupirocin 1 devyn TOPICAL BID #22 gm 03/21/17 rizatriptan [Maxalt] 10 mg PO QDAY #10 tab 03/21/17 oxycodone 5 mg PO Q4-6H PRN #10 tab 08/23/17 sertraline 100 mg tablet 200 mg PO QDAY #60 tab 08/28/17 Allergies Allergy/AdvReac Type Severity Reaction Status Date / Time hydromorphone [HYDROMORPHONE] Allergy Mild RESP Verified 08/23/17 16:18 DISTRESS adhesive tape Allergy Unknown Rash Verified 08/23/17 16:43 PFSH Medical History Asthma (Chronic) Congenital adrenal hypoplasia (Chronic) Migraines (Chronic) Social History Smoking Status: Never smoker Exam Initial Vital Signs Initial Vital Signs: Vital Signs Temperature 98.0 F 09/07/17 04:33 Pulse Rate 56 L 09/07/17 04:33 Respiratory Rate 16 09/07/17 04:33 Blood Pressure 113/64 09/07/17 04:33 Course Orders Ordered: ED Orders 09/07/17 05:29 Urinalysis and Microscopic Stat Urine Drug Screen, Rapid Stat 09/07/17 06:15 Complete Blood Count AUTO DIFF Stat Comprehensive Metabolic Panel Stat Cortisol Random Stat Free T4 Free Thyroxine Stat Lactate (Lactic Acid) Stat Lipase Stat Magnesium Stat Procalcitonin Stat Thyroid Stimulating Hormone Stat 09/07/17 07:06 Ethanol (ETOH) Stat 09/07/17 07:14 Test Serum,Qual Stat Discontinued Medications Sodium Chloride (Normal Saline 0.9%) 1,000 mls @ 1,000 mls/hr IV BOLUS ONE Stop: 09/07/17 06:28 Last Admin: 09/07/17 06:10 Dose: 1,000 mls/hr Vital Signs - 8 hr 09/07/17 04:33 09/07/17 05:00 09/07/17 05:03 Temperature 98.0 F 98.0 F 98.0 F Pulse Rate 56 L 56 L 56 L Respiratory Rate 16 16 16 Blood Pressure 113/72 113/72 Blood Pressure [Right Arm] 113/64 Pulse Oximetry 98 98 09/07/17 05:45 Temperature 97.8 F Pulse Rate 55 L Respiratory Rate 14 Blood Pressure Blood Pressure [Right Arm] 119/58 L Pulse Oximetry 96 MDM - Back Pain/Injury Lab Data Result diagrams: 09/07/17 06:15 09/07/17 06:15 Lab Results 09/07/17 09/07/17 09/07/17 Range/Units 06:15 06:15 06:15 WBC 13.0 H (4.5-11.0) X10^3/uL RBC 4.83 (4.0-5.2) X10^6/uL Hgb 13.8 (12.0-16.0) g/dL Hct 41.7 (36-46) % MCV 86.3 (80-100) fL MCH 28.5 (26-34) PG MCHC 33.0 (30-36) % RDW 13.5 (11.6-14.8) % Plt Count 273 (150-400) X10^3/uL Neut % (Auto) 57.5 (50-75) % Lymph % (Auto) 30.1 (25-40) % [place] % (Auto) 8.0 (3-14) % Eos % (Auto) 3.2 (2-4) % Baso % (Auto) 1.2 (0-2) % Neut # (Auto) 7500 H (5697-2271) /uL Sodium (137-145) mmol/L Potassium (3.4-5.1) mmol/L Chloride (98-107) mmol/L Carbon Dioxide (22-32) mmol/L BUN (7-17) mg/dL Creatinine (0.52-1.04) mg/dL Estimated GFR (>60) mL/min BUN/Creatinine Ratio (6-22) Glucose (70-100) mg/dL Lactate (0.7-2.1) mmol/L Calcium (8.4-10.2) mg/dL Magnesium 1.8 (1.6-2.3) mg/dL Total Bilirubin (0.2-1.3) mg/dL AST (14-36) IU/L ALT (9-52) IU/L Alkaline Phosphatase (38-126) U/L Total Protein (6.3-8.2) g/dL Albumin (3.5-5.0) g/dL Globulin (1.7-4.1) g/dL Albumin/Globulin Ratio (1.0-2.8) Lipase 81 (23-300) U/L Procalcitonin < 0.05 (<0.5) ng/mL TSH (0.47-4.68) uIU/mL Free T4 (0.78-2.19) ng/dL Random Cortisol 9.38 ug/dL 09/07/17 09/07/17 09/07/17 Range/Units 06:15 06:15 06:15 WBC (4.5-11.0) X10^3/uL RBC (4.0-5.2) X10^6/uL Hgb (12.0-16.0) g/dL Hct (36-46) % MCV (80-100) fL MCH (26-34) PG MCHC (30-36) % RDW (11.6-14.8) % Plt Count (150-400) X10^3/uL Neut % (Auto) (50-75) % Lymph % (Auto) (25-40) % [place] % (Auto) (3-14) % Eos % (Auto) (2-4) % Baso % (Auto) (0-2) % Neut # (Auto) (1838-1024) /uL Sodium 142 (137-145) mmol/L Potassium 4.2 (3.4-5.1) mmol/L Chloride 102 (98-107) mmol/L Carbon Dioxide 27 (22-32) mmol/L BUN 15 (7-17) mg/dL Creatinine 0.60 (0.52-1.04) mg/dL Estimated GFR > 60.0 (>60) mL/min BUN/Creatinine Ratio 25.0 H (6-22) Glucose 99 (70-100) mg/dL Lactate 2.4 H (0.7-2.1) mmol/L Calcium 8.9 (8.4-10.2) mg/dL Magnesium (1.6-2.3) mg/dL Total Bilirubin 0.5 (0.2-1.3) mg/dL AST 21 (14-36) IU/L ALT 15 (9-52) IU/L Alkaline Phosphatase 76 (38-126) U/L Total Protein 7.1 (6.3-8.2) g/dL Albumin 4.0 (3.5-5.0) g/dL Globulin 3.1 (1.7-4.1) g/dL Albumin/Globulin Ratio 1.3 (1.0-2.8) Lipase (23-300) U/L Procalcitonin (<0.5) ng/mL TSH 3.26 D (0.47-4.68) uIU/mL Free T4 0.88 (0.78-2.19) ng/dL Random Cortisol ug/dL Discharge Plan Departure Prescriptions: No Action albuterol sulfate [Proventil HFA] 90 MCG/PUFF HFA aerosol inhaler 1 puff INH PRN Qty: 17 RF: 0 ibuprofen 200 MG tablet 200 mg PO PRN PRN (Reason: Pain, Mild) Qty: 0 RF: 0 norgestimate-ethinyl estradiol [Sprintec (28)] 1 EACH tablet 1 tab PO QDAY Qty: 0 RF: 0 levothyroxine 88 MCG tablet 0.088 mg PO QDAY Qty: 90 RF: 3 rizatriptan [Maxalt] 10 MG tablet 10 mg PO QDAY Qty: 10 RF: 0 mupirocin 2 % ointment 1 devyn Topical BID Qty: 22 RF: 0 hydrocortisone sod succ (PF) [Solu-Cortef (PF)] 100 MG/2 ML recon soln 100 mg IV PRN Qty: 1 RF: 0 sertraline 100 mg tablet 200 mg PO QDAY Qty: 60 RF: 0 ondansetron 4 MG tablet,disintegrating 4 mg Sublingual Q4HP PRN (Reason: Nausea And Vomiting) RF: 0 hydrocortisone 5 MG tablet 25 mg PO DAILY RF: 0 dexamethasone 0.5 MG tablet 0.25 mg PO HS RF: 0 oxycodone 5 mg tablet 5 mg PO Q4-6H PRN (Reason: pain) Qty: 10 RF: 0
[2017-09-07 07:23] LABS: Ethanol (ETOH) < 10 mg/dL
[2017-09-07 08:00] VITALS: BP 111/66; PULSE 58; RESP 15; O2SAT 97
--- NOTE | 2017-09-07 08:10 | PC.NURSE ---
assuming care, pt reports, has been vomiting 6 times, with back pain. right iv site, not infusing, reposition, drsg changed, site now normal, plan hydrating. pt pain free at rest, and denies any nausea or vomiting at this time mother at bs. alert and awake, cooperative and pleasant moving all ext. skin warm dry pink.
[2017-09-07 08:54] LABS: WBC Urine None Seen (0-5/HPF)
[2017-09-07 08:56] LABS: Appearance Urine UA CLEAR; Bilirubin Urine UA NEGATIVE (NEGATIVE); Color Urine UA YELLOW; Glucose Urine UA NEGATIVE (Normal); Ketones Urine UA NEGATIVE (NEGATIVE); Leukocyte Esterase Urine UA NEGATIVE (NEGATIVE); Nitrite Urine UA Negative (Negative); Occult Blood Urine UA NEGATIVE (Negative); Protein Urine UA NEGATIVE (Negative); Specific Gravity Urine UA 1.015 (1.000-1.035); Urobilinogen Urine UA 0.2 E.U./dL (0.2)
[2017-09-07 09:03] LABS: Urine Amphetamines Negative (Negative); Urine Barbiturates Negative (Negative); Urine Benzodiazepines Negative (Negative); Urine Cocaine Negative (Negative); Urine MDMA Negative (Negative); Urine Methadone Negative (Negative); Urine Methamphetamines Negative (Negative); Urine Morphine/Opi cutoff 2000 Negative (Negative); Urine Oxycodone Negative (Negative); Urine Phencyclidine Negative (Negative); Urine Tetrahydrocannabinol Positive (Negative); Urine Tricyclic Antidepressant Negative (Negative)
[2017-09-07 09:04] LABS: Bacteria Urine Few (2-10); RBC Urine 0-1/HPF (0-5/HPF); Squamous Epithelial Cell Urine 1-5 /HPF
[2017-09-07 09:05] LABS: Culture Indicated Urine Cult Not Indicated
[2017-09-07] MEDS: HYDROCORTISONE 10 MG TABLET 20 MG PO (09:47)
[2017-09-07 10:06] VITALS: BP 122/77; PULSE 60; RESP 16; O2SAT 100
[2017-09-07 10:24] LABS: Reflexed Lactate in 2 Hours Y
== END 2017-09-07 10:08 | disposition home or self-care (01) ==
PROVIDERS: Emergency Provider Emergency Medicine; PCP Nurse Practitioner Family
DX: R53.83 Other fatigue (principal)
CPT/HCPCS: 80053; 80305; 80320; 81001; 82533; 83605; 83690; 83735; 84145; 84439; 84443; 85025; 96361; 96374; 99283; 99284

== ENCOUNTER 2018-01-09 02:46 | Emergency (ER) | payer MEDICARE, MEDICAID, SELFPAY ==
[2018-01-09 02:54] VITALS: BP 139/86; PULSE 86; RESP 18; TEMP 36.2; O2SAT 98; BMI 32.3
--- NOTE | 2018-01-09 03:02 | ED_ITS ---
HPI - Nausea/Vomiting/Diarrhea General Chief complaint: Nausea/Vomiting/Diarrhea Stated complaint: states having CAH attack Time Seen by Provider: 01/09/18 03:02 Source: patient Mode of arrival: ambulatory Limitations: no limitations History of Present Illness HPI Narrative: The patient woke from sleep with nausea, vomiting and diarrhea about 2 hr prior to arrival. She has vomited 2 times. She generally has Zofran at home, but is currently out. She does have adrenal insufficiency. She did take a dose of steroids before going to bed. She is compliant with medications. Within nausea, vomiting diarrhea, she is currently feeling wiped out. She denies fever or chills. She has no dysuria, and no possibility of . Related Data Home Medications Medication Instructions Recorded Confirmed albuterol sulfate [Proventil HFA] 1 puff INH PRN #17 gm 11/04/11 08/23/17 ibuprofen 200 mg PO PRN PRN #0 11/24/12 08/23/17 norgestimate-ethinyl estradiol 1 tab PO QDAY #0 12/06/16 08/23/17 [Sprintec (28)] dexamethasone 0.25 mg PO HS 08/23/17 09/07/17 hydrocortisone 25 mg PO DAILY 08/23/17 09/07/17 ondansetron 4 mg SUBLINGUAL Q4HP PRN 09/07/17 09/07/17 Previous Rx's Medication Instructions Recorded levothyroxine 0.088 mg PO QDAY #90 tab 12/27/16 hydrocortisone sod succ (PF) 100 mg IV PRN #1 vial 03/21/17 [Solu-Cortef (PF)] mupirocin 1 devyn TOPICAL BID #22 gm 03/21/17 rizatriptan [Maxalt] 10 mg PO QDAY #10 tab 03/21/17 oxycodone 5 mg PO Q4-6H PRN #10 tab 08/23/17 sertraline 100 mg tablet 200 mg PO QDAY #60 tab 08/28/17 ondansetron 4 mg PO Q6-8H PRN #10 tab 09/07/17 ondansetron [Zofran ODT] 4 mg PO Q4H #10 tab 01/09/18 ondansetron [Zofran ODT] 4 mg PO Q4H PRN #10 tab 01/09/18 Allergies Allergy/AdvReac Type Severity Reaction Status Date / Time hydromorphone [HYDROMORPHONE] Allergy Mild RESP Verified 08/23/17 16:18 DISTRESS adhesive tape Allergy Unknown Rash Verified 08/23/17 16:43 Review of Systems Review of Systems All systems reviewed & are unremarkable except as noted in HPI and below Constitutional Denies chills, Denies fever(s), Reports lethargy and Reports weakness Eyes Denies change in vision ENT Ears, Nose, Mouth, and Throat: Denies change in voice, Denies neck pain and Denies sore throat Cardiovascular Denies chest pain, Denies irregular heart rhythm, Denies lightheadedness, Denies palpitations, Denies dyspnea, Denies dyspnea on exertion and Denies orthopnea Respiratory Denies cough, Denies dyspnea, Denies dyspnea on exertion and Denies wheezing Gastrointestinal Gastrointestinal: Denies abdominal pain, Denies change in bowel habits, Denies diarrhea, Denies nausea and Denies vomiting Genitourinary Denies dysuria, Denies pelvic pain, Denies sexual dysfunction and Reports flank pain Musculoskeletal Denies back pain, Denies muscle cramps and Denies neck pain Integumentary/Breasts Denies erythema and Denies rash Neurologic Reports weakness Psychiatric Denies anxiety Endocrine Denies palpitations Allergic/Immunologic Denies wheezing PFSH Medical History Asthma (Chronic) Congenital adrenal hypoplasia (Chronic) Migraines (Chronic) Social History Smoking Status: Never smoker Exam Initial Vital Signs Initial Vital Signs: Vital Signs Temperature 97.2 F L 01/09/18 02:54 Pulse Rate 86 01/09/18 02:54 Respiratory Rate 18 01/09/18 02:54 Blood Pressure 139/86 01/09/18 02:54 Pulse Oximetry 98 01/09/18 02:54 Course Orders Ordered: ED Orders 01/09/18 03:43 Urine Microscopic Stat 01/09/18 03:55 Complete Blood Count AUTO DIFF Stat Comprehensive Metabolic Panel Stat Lipase Stat Discontinued Medications Hydrocortisone (Solu-Cortef) 100 mg IV NOW ONE Stop: 01/09/18 03:26 Last Admin: 01/09/18 03:57 Dose: 100 mg Sodium Chloride (Normal Saline 0.9%) 1,000 mls @ 1,000 mls/hr IV BOLUS ONE Stop: 01/09/18 04:24 Last Infusion: 01/09/18 04:52 Dose: 0 mls/hr Admin: 01/09/18 03:57 Dose: 1,000 mls/hr Ondansetron HCl (Zofran) 4 mg IV NOW ONE Stop: 01/09/18 03:26 Last Admin: 01/09/18 03:57 Dose: 4 mg Ondansetron HCl (Zofran Odt Prepack) 1 bottle MISC SEEINSTR ONE Stop: 01/09/18 04:59 Last Admin: 01/09/18 05:25 Dose: 1 bottle Vital Signs - 8 hr 01/09/18 02:54 01/09/18 05:23 Temperature 97.2 F L 98.3 F Pulse Rate 86 61 Respiratory Rate 18 14 Blood Pressure 139/86 Blood Pressure [Left Arm] 116/62 Pulse Oximetry 98 98 MDM - Nausea/Vomiting/Diarrhea Lab Data Attestation: I reviewed the patient's lab results. Result diagrams: 01/09/18 03:55 01/09/18 03:55 Lab Results 01/09/18 01/09/18 01/09/18 Range/Units 03:43 03:55 03:55 WBC 15.3 H (4.5-11.0) X10^3/uL RBC 4.84 (4.0-5.2) X10^6/uL Hgb 13.9 (12.0-16.0) g/dL Hct 41.6 (36-46) % MCV 86.0 (80-100) fL MCH 28.8 (26-34) PG MCHC 33.5 (30-36) % RDW 13.1 (11.6-14.8) % Plt Count 278 (150-400) X10^3/uL Neut % (Auto) 63.3 (50-75) % Lymph % (Auto) 26.1 (25-40) % [place] % (Auto) 7.3 (3-14) % Eos % (Auto) 2.4 (2-4) % Baso % (Auto) 0.9 (0-2) % Neut # (Auto) 9700 H (2885-8168) /uL Sodium 143 (137-145) mmol/L Potassium 3.7 (3.4-5.1) mmol/L Chloride 104 (98-107) mmol/L Carbon Dioxide 25 (22-32) mmol/L BUN 10 (7-17) mg/dL Creatinine 0.60 (0.52-1.04) mg/dL Estimated GFR > 60.0 (>60) mL/min BUN/Creatinine Ratio 16.7 (6-22) Glucose 105 H (70-100) mg/dL Calcium 8.9 (8.4-10.2) mg/dL Total Bilirubin 0.3 (0.2-1.3) mg/dL AST 15 (14-36) IU/L ALT 20 (9-52) IU/L Alkaline Phosphatase 75 (38-126) U/L Total Protein 7.2 (6.3-8.2) g/dL Albumin 4.3 (3.5-5.0) g/dL Globulin 2.9 (1.7-4.1) g/dL Albumin/Globulin Ratio 1.5 (1.0-2.8) Lipase 94 (23-300) U/L Urine RBC 0-1/hpf (0-5/HPF) Urine WBC 0-1/hpf (0-5/HPF) Ur Squamous Epith Cells 5-10 /hpf H Urine Bacteria Many (>30) H (None) Urine Mucus 1+ H (Negative) Ur Culture Indicated? Cult not indicated Micro UA Comment Not Reportable Point of Care Testing Test Results Negative Glucose POC 89 Urine Dip Bedside Urine Glucose Negative Bedside Urine Bilirubin - Negative Bedside Urine Ketone - Negative Urine Specific [place] [employer] 1.025 Bedside Urine Occult Blood + Bedside Urine pH 6.0 Bedside Urine Protein - Negative Bedside Urine Urobilinogen - Negative Bedside Urine Nitrite - Negative Bedside Urine Leukocytes - Negative Esterase MDM Narrative Medical decision making narrative: Her GI symptoms have resolved with the medications given. The lethargy has improved, likely due to the IV steroids. She will be discharged on Zofran, she has steroids at home. Discharge Plan Departure Patient Disposition: Home Clinical Impression: Nausea and vomiting, Adrenal crisis Discharge Date/Time: 01/09/18 05:32 Interventions: ED Discharge Assessment Last Done: 01/09/18 05:31 Instructions: Nausea and Vomiting-Adult Activity Restrictions/Additional Instructions: Continue with your current medication regimen. Zofran every 4 hr as needed for nausea. Drink plenty of fluids, advance youfr diet slowly. Prescriptions: New ondansetron [Zofran ODT] 4 mg tablet,disintegrating 4 mg PO Q4H PRN (Reason: nausea and vomiting) Qty: 10 RF: 0 ondansetron [Zofran ODT] 4 mg tablet,disintegrating 4 mg PO Q4H Qty: 10 RF: 0 No Action albuterol sulfate [Proventil HFA] 90 MCG/PUFF HFA aerosol inhaler 1 puff INH PRN Qty: 17 RF: 0 ibuprofen 200 MG tablet 200 mg PO PRN PRN (Reason: Pain, Mild) Qty: 0 RF: 0 norgestimate-ethinyl estradiol [Sprintec (28)] 1 EACH tablet 1 tab PO QDAY Qty: 0 RF: 0 levothyroxine 88 MCG tablet 0.088 mg PO QDAY Qty: 90 RF: 3 rizatriptan [Maxalt] 10 MG tablet 10 mg PO QDAY Qty: 10 RF: 0 mupirocin 2 % ointment 1 devyn Topical BID Qty: 22 RF: 0 hydrocortisone sod succ (PF) [Solu-Cortef (PF)] 100 MG/2 ML recon soln 100 mg IV PRN Qty: 1 RF: 0 sertraline 100 mg tablet 200 mg PO QDAY Qty: 60 RF: 0 ondansetron 4 MG tablet,disintegrating 4 mg Sublingual Q4HP PRN (Reason: Nausea And Vomiting) RF: 0 ondansetron 4 mg tablet,disintegrating 4 mg PO Q6-8H PRN (Reason: nausea and vomiting) Qty: 10 RF: 0 hydrocortisone 5 MG tablet 25 mg PO DAILY RF: 0 dexamethasone 0.5 MG tablet 0.25 mg PO HS RF: 0 oxycodone 5 mg tablet 5 mg PO Q4-6H PRN (Reason: pain) Qty: 10 RF: 0
[2018-01-09] MEDS: SODIUM CHLORIDE 0.9% 1,000 ML 1000 ML IV (03:57)
[2018-01-09] MEDS: HYDROCORTISONE 100 MG/2 ML VIAL IV (03:57)
[2018-01-09] MEDS: ONDANSETRON 4 MG/2 ML INJ IV (03:57)
[2018-01-09 04:06] LABS: Add Manual Diff / Slide Review NO; Basophils Percent Auto 0.9 % (0-2); Eosinophils Percent Auto 2.4 % (2-4); Hematocrit 41.6 % (36-46); Hemoglobin 13.9 g/dL (12.0-16.0); Lymphocytes Percent Auto 26.1 % (25-40); Mean Corpuscular HGB Conc 33.5 % (30-36); Mean Corpuscular Hemoglobin 28.8 PG (26-34); Monocytes Percent Auto 7.3 % (3-14); Neutrophils Absolute Auto 9700 /uL (3000-5900); Neutrophils Percent Auto 63.3 % (50-75); Platelet Count 278 X10^3/uL (150-400); Red Blood Cell Count 4.84 X10^6/uL (4.0-5.2); Red Cell Distribution Width 13.1 % (11.6-14.8); White Blood Cell Count 15.3 X10^3/uL (4.5-11.0)
--- NOTE | 2018-01-09 04:07 | PC.NURSE ---
tegaderm folded back to itself so it is only sticking directly adjacent to the IV hub in attempts to limit adhesive exposure to skin. Coban wrapped to maintain placment.
[2018-01-09 04:15] LABS: Alanine Aminotransferase 20 IU/L (9-52); Albumin 4.3 g/dL (3.5-5.0); Albumin Globulin Ratio 1.5 (1.0-2.8); Alkaline Phosphatase 75 U/L (38-126); Aspartate Aminotransferase 15 IU/L (14-36); BUN Creatinine Ratio 16.7 (6-22); Bilirubin Total 0.3 mg/dL (0.2-1.3); Blood Urea Nitrogen 10 mg/dL (7-17); Calcium 8.9 mg/dL (8.4-10.2); Carbon Dioxide 25 mmol/L (22-32); Chloride 104 mmol/L (98-107); Estimated Glomerular Filt Rate > 60.0 mL/min (>60); Globulin 2.9 g/dL (1.7-4.1); Glucose 105 mg/dL (70-100); HEMOLYSIS 16 (0-50); Lipase 94 U/L (23-300); Potassium 3.7 mmol/L (3.4-5.1); Sodium 143 mmol/L (137-145); Total Protein 7.2 g/dL (6.3-8.2)
[2018-01-09 04:30] LABS: RBC Urine 0-1/HPF (0-5/HPF); Squamous Epithelial Cell Urine 5-10 /HPF; WBC Urine 0-1/HPF (0-5/HPF)
[2018-01-09 04:31] LABS: Bacteria Urine Many (>30); Culture Indicated Urine Cult Not Indicated; Mucus Urine 1+ (Negative)
--- NOTE | 2018-01-09 04:46 | PC.NURSE ---
Pt stated i am less nausious. Pt resting calmly on stretcher, denies needs at this time.
[2018-01-09 05:23] VITALS: BP 116/62; PULSE 61; RESP 14; TEMP 36.8; O2SAT 98
[2018-01-09] MEDS: ONDANSETRON 4 MG ODT PREPACK 1 BOTTLE MISC (05:25)
== END 2018-01-09 05:32 | disposition home or self-care (01) ==
PROVIDERS: Emergency Provider Emergency Medicine; PCP Family Medicine
DX: E27.2 Addisonian crisis (principal); R11.2 Nausea with vomiting, unspecified
CPT/HCPCS: 36591; 80053; 81003; 81015; 81025; 82962; 83690; 85025; 96361; 96374; 96375; 99283; 99284; J1720; J2405

== ENCOUNTER → 2018-02-08 11:12 | Outpatient (CLI) | payer MEDICARE, MEDICAID, SELFPAY | PROVIDERS: PCP Family Medicine; Visit Provider Physician Assistant | DX: J02.9 Acute pharyngitis, unspecified (principal) | CPT/HCPCS: 87070 ==

== ENCOUNTER 2018-04-13 08:38 | Emergency (ER) | payer MEDICARE, MEDICAID, SELFPAY ==
[2018-04-13 08:45] VITALS: BP 146/67; PULSE 105; RESP 17; TEMP 36.6; O2SAT 98
[2018-04-13 09:03] VITALS: BP 142/77; PULSE 98; RESP 17; TEMP 36.4; O2SAT 98
[2018-04-13] MEDS: SODIUM CHLORIDE 0.9% 1,000 ML 1000 ML IV ×2 (09:15→11:38)
[2018-04-13] MEDS: ONDANSETRON 4 MG/2 ML INJ IV (09:15)
--- NOTE | 2018-04-13 09:58 | PC.NURSE ---
Diarrhea, bed linens changed due to incontinence.
[2018-04-13 10:00] LABS: Add Manual Diff / Slide Review NO; Basophils Absolute Auto 0 /uL (0-100); Basophils Percent Auto 0.1 % (0-2); Eosinophils Absolute Auto 200 /uL (0-450); Eosinophils Percent Auto 1.1 % (2-4); Hematocrit 42.6 % (36-46); Hemoglobin 14.5 g/dL (12.0-16.0); Lymphocytes Absolute Auto 1000 /uL (1100-4500); Lymphocytes Percent Auto 5.9 % (25-40); Mean Corpuscular HGB Conc 34.1 % (30-36); Mean Corpuscular Hemoglobin 29.4 PG (26-34); Mean Corpuscular Volume 86.3 fL (80-100); Monocytes Absolute Auto 600 /uL (0-900); Monocytes Percent Auto 3.4 % (3-14); Neutrophils Absolute Auto 15800 /uL (1500-7000); Neutrophils Percent Auto 89.5 % (50-75); Platelet Count 305 X10^3/uL (150-400); Red Blood Cell Count 4.93 X10^6/uL (4.0-5.2); Red Cell Distribution Width 13.2 % (11.6-14.8); White Blood Cell Count 17.7 X10^3/uL (4.5-11.0)
[2018-04-13 10:06] LABS: Alanine Aminotransferase 19 IU/L (9-52); Albumin 4.7 g/dL (3.5-5.0); Albumin Globulin Ratio 1.3 (1.0-2.8); Alkaline Phosphatase 91 U/L (38-126); Aspartate Aminotransferase 46 IU/L (14-36); Bilirubin Total 0.7 mg/dL (0.2-1.3); Blood Urea Nitrogen 18 mg/dL (7-17); Calcium 9.1 mg/dL (8.4-10.2); Carbon Dioxide 22 mmol/L (22-32); Chloride 101 mmol/L (98-107); Estimated Glomerular Filt Rate > 60.0 mL/min (>60); Globulin 3.5 g/dL (1.7-4.1); Glucose 121 mg/dL (70-100); HEMOLYSIS < 15 (0-50); Lipase 76 U/L (23-300); Potassium 3.7 mmol/L (3.4-5.1); Sodium 137 mmol/L (137-145); Total Protein 8.2 g/dL (6.3-8.2)
[2018-04-13 10:08] VITALS: TEMP 36.6
[2018-04-13] MEDS: KETOROLAC 60 MG/2 ML VIAL 30 MG IV (10:08)
--- NOTE | 2018-04-13 10:42 | ED.ABDPAIN ---
HPI - Abdominal Pain General Chief Complaint: Abdominal Pain Stated Complaint: ADRENAL CRISIS Time Seen by Provider: 04/13/18 09:49 Source: patient and family (mother) Mode of arrival: ambulatory Limitations: no limitations History of Present Illness HPI narrative: This is a 22-year-old female comes to the emergency department with concern for adrenal crisis. Mom states that she has had impacted molars which have been quite uncomfortable. She has a follow-up appointment later this month to have them removed she has had a little bit a headache, started having nausea followed by vomiting and diarrhea for the last 12-24 hours. Patient was not able to keep down any of her oral Zofran and was not able to take any of her stress dose steroids for her congenital adrenal hyperplasia. Mom states this is typical finding were still have vomiting and diarrhea Um preceding adrenal crisis. Patient has not had any fevers. She did states she has a throat or throat but only after vomiting. Patient also states she has some abdominal pain but states that it is secondary to vomiting. She has some low back pain bilaterally. Patient is not having any more diarrhea at this time. She has not had any dysuria but has had some frequency. She also has recently started her period. Patient takes dexamethasone daily. Mom states she still follows with an wort extractor Dr. Mcwilliams over in [place]. Related Data Home Medications Medication Instructions Recorded Confirmed Proventil HFA 1 puff INH PRN #17 gm 11/04/11 04/13/18 ibuprofen 200 mg PO PRN PRN #0 11/24/12 04/13/18 norgestimate-ethinyl estradiol 1 tab PO QDAY #0 12/06/16 04/13/18 [Sprintec (28)] dexamethasone 0.25 mg PO HS 08/23/17 04/13/18 hydrocortisone 15 mg PO DAILY PRN 08/23/17 04/13/18 ondansetron 4 mg SUBLINGUAL Q4HP PRN 09/07/17 04/13/18 citalopram 10 mg PO DAILY 04/13/18 04/13/18 rizatriptan [Maxalt] 10 mg PO QDAY PRN 04/13/18 04/13/18 sertraline 200 mg PO DAILY 04/13/18 04/13/18 Previous Rx's Medication Instructions Recorded levothyroxine 0.088 mg PO QDAY #90 tab 12/27/16 Solu-Cortef (PF) 100 mg IV PRN #1 vial 03/21/17 mupirocin 1 devyn TOPICAL BID #22 gm 03/21/17 oxycodone 5 mg PO Q4-6H PRN #10 tab 08/23/17 ondansetron HCl [Zofran] 4 mg PO Q6-8H PRN #7 tab 04/13/18 Allergies Allergy/AdvReac Type Severity Reaction Status Date / Time hydromorphone [HYDROMORPHONE] Allergy Mild RESP Verified 02/08/18 10:43 DISTRESS adhesive tape Allergy Unknown Rash Verified 02/08/18 10:43 Review of Systems Review of Systems ROS Unobtainable: All systems reviewed & are unremarkable except as noted in HPI and below Constitutional Denies chills, Denies excessive sweating, Reports fatigue, Denies fever(s), Reports headache(s), Denies lethargy, Reports malaise, Denies night sweats and Denies weakness ENT Ears, Nose, Mouth, and Throat: Reports headache(s), Denies nasal congestion, Denies nasal discharge and Reports sore throat (after vomiting) Cardiovascular Denies chest pain, Denies diaphoresis, Denies syncope, Denies irregular heart rhythm, Denies leg edema, Denies lightheadedness, Denies palpitations, Denies dyspnea, Denies dyspnea on exertion and Denies orthopnea Respiratory Denies change in phlegm color, Denies chest congestion, Denies cough, Denies hemoptysis, Denies excessive phlegm production, Denies dyspnea, Denies dyspnea on exertion and Denies wheezing Gastrointestinal Gastrointestinal: Reports abdominal pain, Denies melena, Denies hematochezia, Denies change in bowel habits, Denies constipation, Reports diarrhea, Reports nausea and Reports vomiting Genitourinary Reports as per HPI, Denies hematuria, Reports urinary frequency, Denies dysuria, Denies flank pain, Denies urinary incontinence and Denies urinary urgency Musculoskeletal Reports back pain Integumentary/Breasts Denies rash Neurologic Denies syncope, Reports headache(s) and Denies weakness Endocrine Denies excessive sweating, Reports fatigue and Denies palpitations Allergic/Immunologic Denies wheezing [facility] Medical History Asthma (Chronic) Congenital adrenal hypoplasia (Chronic) Migraines (Chronic) Social History Smoking Status: Never smoker Social History Smoking Status: Never smoker Exam Narrative Exam Narrative: GEN: Obese female, alert and oriented x 3, patient appears to be in mild distress. HEENT: Atraumatic, pupils are equal round reactive to light, extraocular movements are intact, nares are clear. HEART: Regular rate and rhythm without murmur, clicks, rubs. LUNGS:Lungs clear to auscultation, no wheezes, rales, crackles, chest moves symmetrically, no tachypnea, no accessory muscle use. ABD:bowel sounds normal, soft, mild generalized tenderness, no guarding, rebound, rigidity, no masses noted, no hepatosplenomegaly :No CVA tenderness MSCL: Non-tender, no muscle atrophy, muscles strength 5/5 upper and lower extremities, full range of motion, gait not tested. NEURO:CN 2-12 intact, sensation normal Initial Vital Signs Initial Vital Signs: Vital Signs Temperature 98 F 04/13/18 08:45 Pulse Rate 105 H 04/13/18 08:45 Respiratory Rate 17 04/13/18 08:45 Blood Pressure 146/67 H 04/13/18 08:45 Pulse Oximetry 98 04/13/18 08:45 Course Orders Ordered: ED Orders 04/13/18 13:34 Urine Microscopic Stat Discontinued Medications Hydrocortisone (Solu-Cortef) 50 mg IV NOW ONE Stop: 04/13/18 10:59 Last Admin: 04/13/18 11:38 Dose: 50 mg Sodium Chloride (Normal Saline 0.9%) 1,000 mls @ 1,000 mls/hr IV BOLUS ONE Stop: 04/13/18 10:49 Last Infusion: 04/13/18 10:34 Dose: 0 mls/hr Admin: 04/13/18 09:15 Dose: 1,000 mls/hr Sodium Chloride (Normal Saline 0.9%) 1,000 mls @ 1,000 mls/hr IV BOLUS ONE Stop: 04/13/18 11:56 Last Infusion: 04/13/18 13:24 Dose: 0 mls/hr Admin: 04/13/18 11:38 Dose: 1,000 mls/hr Ketorolac Tromethamine (Toradol) 30 mg IV NOW ONE Stop: 04/13/18 09:51 Last Admin: 04/13/18 10:08 Dose: 30 mg Lorazepam (Ativan) 1 mg IV NOW ONE Stop: 04/13/18 10:46 Last Admin: 04/13/18 11:54 Dose: Not Given Ondansetron HCl (Zofran) 4 mg IV NOW ONE Stop: 04/13/18 10:02 Last Admin: 04/13/18 09:15 Dose: 4 mg Vital Signs - 8 hr 04/13/18 11:06 04/13/18 11:51 Pulse Rate 73 80 Respiratory Rate 16 19 Blood Pressure [Right Arm] 135/62 140/76 Pulse Oximetry 99 96 MDM - Abdominal Pain Lab Data Attestation: I reviewed the patient's lab results. Result diagrams: 04/13/18 09:05 04/13/18 09:05 Lab Results 04/13/18 04/13/18 Range/Units 09:05 09:05 WBC 17.7 H (4.5-11.0) X10^3/uL RBC 4.93 (4.0-5.2) X10^6/uL Hgb 14.5 (12.0-16.0) g/dL Hct 42.6 (36-46) % MCV 86.3 (80-100) fL MCH 29.4 (26-34) PG MCHC 34.1 (30-36) % RDW 13.2 (11.6-14.8) % Plt Count 305 (150-400) X10^3/uL Neut % (Auto) 89.5 H (50-75) % Lymph % (Auto) 5.9 L (25-40) % [place] % (Auto) 3.4 (3-14) % Eos % (Auto) 1.1 L (2-4) % Baso % (Auto) 0.1 (0-2) % Neut # (Auto) 04704 H (2981-7199) /uL Lymph # (Auto) 1000 L (0128-3146) /uL [place] # (Auto) 600 (0-900) /uL Eos # (Auto) 200 (0-450) /uL Baso # (Auto) 0 (0-100) /uL Sodium 137 (137-145) mmol/L Potassium 3.7 (3.4-5.1) mmol/L Chloride 101 (98-107) mmol/L Carbon Dioxide 22 (22-32) mmol/L BUN 18 H (7-17) mg/dL Creatinine 0.60 (0.52-1.04) mg/dL Estimated GFR > 60.0 (>60) mL/min BUN/Creatinine Ratio 30.0 H (6-22) Glucose 121 H (70-100) mg/dL Calcium 9.1 (8.4-10.2) mg/dL Total Bilirubin 0.7 (0.2-1.3) mg/dL AST 46 H (14-36) IU/L ALT 19 (9-52) IU/L Alkaline Phosphatase 91 (38-126) U/L Total Protein 8.2 (6.3-8.2) g/dL Albumin 4.7 (3.5-5.0) g/dL Globulin 3.5 (1.7-4.1) g/dL Albumin/Globulin Ratio 1.3 (1.0-2.8) Lipase 76 (23-300) U/L Point of care testing: Point of Care Testing Test Results Negative Urine Dip Bedside Urine Glucose Negative Bedside Urine Bilirubin + 1 Bedside Urine Ketone - Negative Urine Specific [place] 1.010 Bedside Urine Occult Blood + Bedside Urine pH 8.5 Bedside Urine Protein +/- 15 Bedside Urine Urobilinogen - Negative Bedside Urine Nitrite - Negative Bedside Urine Leukocytes - Negative Esterase MDM Narrative Medical decision making narrative: Patient has elevated white count but she is on dexamethasone daily. It appears to be elevated fairly frequently. Patient is feeling better after dose of Solu-Cortef 50 mg as well as 2 L of fluid. Discussed with patient and her mother they feel comfortable returning home. Her labs otherwise do not show a lot of major changes. Urine does show blood but she is on her menses. Patient has Solu-Cortef at home and has a protocol for stress dosing. They feel comfortable doing this on their own and have phone back up with her [employer] for any dosing or other questions. Discharge Plan Departure Patient Disposition: Home Clinical Impression: Nausea, vomiting and diarrhea, Congenital adrenal hyperplasia Discharge Date/Time: 04/13/18 13:22 Interventions: ED Discharge Assessment Last Done: 04/13/18 13:22 Instructions: DI for Vomiting -- Adult Activity Restrictions/Additional Instructions: Follow up with your physician in the next 2-3 days if you are not feeling back to normal. Continue your home medications as prescribed. Continue your steroids for stress dosing as per your endocrinology team. Return to ER for worsening symptoms, fevers greater than 100.4, lightheadedness, passing out, persistent vomiting, black or bloody stools, persistent abdominal pain or other new or concerning symptoms. Prescriptions: New ondansetron HCl [Zofran] 4 mg tablet 4 mg PO Q6-8H PRN (Reason: nausea and vomiting) Qty: 7 RF: 0 No Action Proventil HFA 90 MCG/PUFF HFA aerosol inhaler 1 puff INH PRN Qty: 17 RF: 0 ibuprofen 200 MG tablet 200 mg PO PRN PRN (Reason: Pain, Mild) Qty: 0 RF: 0 norgestimate-ethinyl estradiol [Sprintec (28)] 1 EACH tablet 1 tab PO QDAY Qty: 0 RF: 0 levothyroxine 88 MCG tablet 0.088 mg PO QDAY Qty: 90 RF: 3 mupirocin 2 % ointment 1 devyn Topical BID Qty: 22 RF: 0 Solu-Cortef (PF) 100 MG/2 ML recon soln 100 mg IV PRN Qty: 1 RF: 0 ondansetron 4 MG tablet,disintegrating 4 mg Sublingual Q4HP PRN (Reason: Nausea And Vomiting) RF: 0 citalopram 10 mg tablet 10 mg PO DAILY RF: 0 rizatriptan [Maxalt] 10 MG tablet 10 mg PO QDAY PRN (Reason: Headache) RF: 0 sertraline 100 mg tablet 200 mg PO DAILY RF: 0 hydrocortisone 5 MG tablet 15 mg PO DAILY PRN (Reason: fever and mild disease present) RF: 0 dexamethasone 0.5 MG tablet 0.25 mg PO HS RF: 0 oxycodone 5 mg tablet 5 mg PO Q4-6H PRN (Reason: pain) Qty: 10 RF: 0 Referrals: Lino Hillman MD [Primary Care Provider] -
[2018-04-13 11:06] VITALS: BP 135/62; PULSE 73; RESP 16; O2SAT 99
[2018-04-13] MEDS: HYDROCORTISONE 100 MG/2 ML VIAL 50 MG IV (11:38)
[2018-04-13 11:51] VITALS: BP 140/76; PULSE 80; RESP 19; O2SAT 96
== END 2018-04-13 13:22 | disposition home or self-care (01) ==
PROVIDERS: Emergency Provider Emergency Medicine; PCP Specialist
DX: R11.2 Nausea with vomiting, unspecified (principal); R19.7 Diarrhea, unspecified; E25.0 Congenital adrenogenital disorders associated with enzyme deficiency
CPT/HCPCS: 36591; 80053; 81003; 81025; 83690; 85025; 96361; 96374; 96375; 99284; J1720; J1885; J2405

== ENCOUNTER 2018-07-21 12:24 | Emergency (ER) | payer MEDICARE, MEDICAID, SELFPAY ==
[2018-07-21] VITALS (8 sets, daily range): BP systolic 134–155; BP diastolic 69–94; PULSE 50–93; RESP 16–22; TEMP 36.1–36.8; O2SAT 98–100
[2018-07-21] MEDS: ONDANSETRON 4 MG/2 ML INJ IV ×2 (13:25→18:43)
[2018-07-21] MEDS: SODIUM CHLORIDE 0.9% 1,000 ML 1000 ML IV ×3 (13:25→17:00)
--- NOTE | 2018-07-21 13:57 | ED_ITS ---
HPI - Abdominal Pain General Chief Complaint: Abdominal Pain Stated Complaint: adrenal insufficiency onset today Time Seen by Provider: 07/21/18 13:36 Source: patient Mode of arrival: ambulatory Limitations: no limitations History of Present Illness HPI narrative: Patient is a 22-year-old female who presents with adrenal insufficiency. She has chronic adrenal insufficiency. She was able to take her medications yesterday however she started vomiting today and able take her medications. She is not hypotensive but in severe abdominal pain. She has history of an appendectomy. She has not been able to get follow-up for her adrenal insufficiency. Mom states that she has been running out of medication. MD complaint: abdominal pain Onset (ago): day(s) (1) Pain Consistency: constant Related Data Home Medications Medication Instructions Recorded Confirmed Proventil HFA 1 puff INH PRN #17 gm 11/04/11 04/13/18 ibuprofen 200 mg PO PRN PRN #0 11/24/12 04/13/18 norgestimate-ethinyl estradiol 1 tab PO QDAY #0 12/06/16 04/13/18 [Sprintec (28)] dexamethasone 0.25 mg PO HS 08/23/17 04/13/18 hydrocortisone 15 mg PO DAILY PRN 08/23/17 04/13/18 ondansetron 4 mg SUBLINGUAL Q4HP PRN 09/07/17 04/13/18 citalopram 10 mg PO DAILY 04/13/18 04/13/18 rizatriptan [Maxalt] 10 mg PO QDAY PRN 04/13/18 04/13/18 sertraline 200 mg PO DAILY 04/13/18 04/13/18 Previous Rx's Medication Instructions Recorded levothyroxine 0.088 mg PO QDAY #90 tab 12/27/16 Solu-Cortef (PF) 100 mg IV PRN #1 vial 03/21/17 mupirocin 1 devyn TOPICAL BID #22 gm 03/21/17 oxycodone 5 mg PO Q4-6H PRN #10 tab 08/23/17 ondansetron HCl [Zofran] 4 mg PO Q6-8H PRN #7 tab 04/13/18 dexamethasone 0.25 mg PO .HS #30 tab 07/21/18 hydrocodone-acetaminophen [[place]] 1 tab PO Q4-6H PRN #10 tab 07/21/18 hydrocortisone 20 mg PO DAILY PRN #30 tab 07/21/18 ondansetron 4 mg PO Q6-8H PRN #30 tab 07/21/18 Allergies Allergy/AdvReac Type Severity Reaction Status Date / Time hydromorphone [HYDROMORPHONE] Allergy Mild RESP Verified 07/21/18 19:08 DISTRESS adhesive tape Allergy Unknown Rash Verified 07/21/18 19:08 Review of Systems Review of Systems GENERAL: Denies chills, fatigue, malaise, fever, sweats, travel HEENT: Denies sinus pain, ear pain, sore throat, difficulty swallowing, neck pain RESPIRATORY: Denies dyspnea, cough, wheezing, hemoptysis, sputum. CARDIOVASCULAR: Denies chest pain, palpitations, orthopnea, edema GASTROINTESTINAL: See HPI : Denies dysuria, frequency, incontinence, hematuria, urinary retention, flank pain. MUSCULOSKELETAL: Denies weakness, joint pain, or bony pain SKIN: No rash, no erythema, no pruritus NEUROLOGIC: Denies weakness, dizziness, headache, numbness, change in speech, confusion PSYCHIATRIC: No concerning psychosocial issues. 12 point review of systems is negative except for those stated above and HPI FOR[facility] Medical History Asthma (Chronic) Congenital adrenal hypoplasia (Chronic) Migraines (Chronic) Social History Smoking Status: Never smoker Social History Smoking Status: Never smoker Exam Initial Vital Signs Initial Vital Signs: Vital Signs Temperature 97.0 F L 07/21/18 12:28 Pulse Rate 79 07/21/18 12:28 Respiratory Rate 20 07/21/18 12:28 Blood Pressure 138/86 07/21/18 12:28 Pulse Oximetry 98 07/21/18 12:28 GENERAL: Alert female appears in pain diaphoretic HEENT: Head atraumatic,EOMI, pupils reactive, CARDIOVASCULAR: Regular rate and rhythm without murmurs, rubs or gallops. RESPIRATORY: Breath sounds equal bilaterally, no wheezes rales or rhonchi. ABDOMEN: Soft, nontender. Normoactive bowel sounds all 4 quadrants. No guarding or rebound. : No CVA tenderness EXTREMITIES: Normal range of motion, no clubbing or edema. Neurovascularly intact NEUROLOGICAL: Alert and oriented x4.Normal gait and speech. Cranial nerves II through XII grossly intact. SKIN: Warm, dry, no laceration, no petechiae, no rashes or lesions. Course Orders Ordered: Discontinued Medications Hydrocodone Bitart/Acetaminophen (Vicodin Prepack) 1 bottle MISC SEEINSTR ONE Stop: 07/21/18 18:40 Last Admin: 07/21/18 18:45 Dose: 1 bottle Dexamethasone (Decadron) 4 mg IV NOW ONE Stop: 07/21/18 18:03 Last Admin: 07/21/18 18:43 Dose: 4 mg Hydrocortisone (Solu-Cortef) 100 mg IV NOW ONE Stop: 07/21/18 13:49 Last Admin: 07/21/18 14:09 Dose: 100 mg Hydrocortisone (Cortef) 20 mg PO NOW ONE Stop: 07/21/18 18:03 Last Admin: 07/21/18 19:07 Dose: Not Given Sodium Chloride (Normal Saline 0.9%) 1,000 mls @ 1,000 mls/hr IV BOLUS ONE Stop: 07/21/18 14:22 Last Infusion: 07/21/18 14:28 Dose: 0 mls/hr Admin: 07/21/18 13:25 Dose: 1,000 mls/hr Sodium Chloride (Normal Saline 0.9%) 1,000 mls @ 1,000 mls/hr IV BOLUS ONE Stop: 07/21/18 15:51 Last Infusion: 07/21/18 16:59 Dose: 0 mls/hr Admin: 07/21/18 15:22 Dose: 1,000 mls/hr Sodium Chloride (Normal Saline 0.9%) 1,000 mls @ 1,000 mls/hr IV BOLUS ONE Stop: 07/21/18 16:18 Last Infusion: 07/21/18 18:45 Dose: 0 mls/hr Admin: 07/21/18 17:00 Dose: 1,000 mls/hr Metoclopramide HCl (Reglan) 10 mg IV NOW ONE Stop: 07/21/18 15:15 Last Admin: 07/21/18 15:22 Dose: 10 mg Morphine Sulfate (Morphine) 2 mg IV NOW ONE Stop: 07/21/18 13:49 Last Admin: 07/21/18 14:10 Dose: 2 mg Morphine Sulfate (Morphine) 2 mg IV NOW ONE Stop: 07/21/18 16:03 Last Admin: 07/21/18 16:04 Dose: 2 mg Ondansetron HCl (Zofran) 4 mg IV NOW ONE Stop: 07/21/18 13:24 Last Admin: 07/21/18 13:25 Dose: 4 mg Ondansetron HCl (Zofran Odt Prepack) 1 bottle MISC SEEINSTR ONE Stop: 07/21/18 18:40 Last Admin: 07/21/18 18:45 Dose: 1 bottle Ondansetron HCl (Zofran) 4 mg IV NOW ONE Stop: 07/21/18 18:42 Last Admin: 07/21/18 18:43 Dose: 4 mg Vital Signs - 8 hr 07/21/18 12:28 07/21/18 13:15 07/21/18 14:10 Temperature 97.0 F L 98.2 F Pulse Rate 79 50 L 62 Respiratory Rate 20 18 22 Blood Pressure 138/86 Blood Pressure [Left Arm] Blood Pressure [Right Arm] 134/91 H 139/88 Pulse Oximetry 98 98 100 07/21/18 15:39 07/21/18 16:37 07/21/18 16:39 Temperature 97.8 F Pulse Rate 62 72 93 H Respiratory Rate 16 18 Blood Pressure Blood Pressure [Left Arm] 138/69 138/69 Blood Pressure [Right Arm] 155/94 H Pulse Oximetry 100 98 99 07/21/18 17:36 Temperature Pulse Rate 86 Respiratory Rate 18 Blood Pressure Blood Pressure [Left Arm] 153/71 H Blood Pressure [Right Arm] Pulse Oximetry 99 MDM - Abdominal Pain Lab Data Attestation: I reviewed the patient's lab results. Result diagrams: 07/21/18 13:30 07/21/18 13:30 Lab Results 07/21/18 07/21/18 07/21/18 Range/Units 13:30 13:30 13:30 WBC 15.1 H (4.5-11.0) X10^3/uL RBC 5.02 (4.0-5.2) X10^6/uL Hgb 14.3 (12.0-16.0) g/dL Hct 43.1 (36-46) % MCV 85.9 (80-100) fL MCH 28.5 (26-34) PG MCHC 33.2 (30-36) % RDW 12.7 (11.6-14.8) % Plt Count 279 (150-400) X10^3/uL Neut % (Auto) 81.2 H (50-75) % Lymph % (Auto) 10.3 L (25-40) % [place] % (Auto) 7.3 (3-14) % Eos % (Auto) 0.6 L (2-4) % Baso % (Auto) 0.6 (0-2) % Neut # (Auto) 42045 H (7047-1208) /uL Lymph # (Auto) 1600 (2323-5576) /uL [place] # (Auto) 1100 H (0-900) /uL Eos # (Auto) 100 (0-450) /uL Baso # (Auto) 100 (0-100) /uL Sodium 138 (137-145) mmol/L Potassium 4.4 (3.4-5.1) mmol/L Chloride 105 (98-107) mmol/L Carbon Dioxide 22 (22-32) mmol/L BUN 13 (7-17) mg/dL Creatinine 0.80 (0.52-1.04) mg/dL Estimated GFR > 60.0 (>60) mL/min BUN/Creatinine Ratio 16.3 (6-22) Glucose 107 H (70-100) mg/dL Calcium 9.3 (8.4-10.2) mg/dL Total Bilirubin 0.4 (0.2-1.3) mg/dL AST 18 (14-36) IU/L ALT 15 (9-52) IU/L Alkaline Phosphatase 85 (38-126) U/L Total Protein 7.8 (6.3-8.2) g/dL Albumin 4.4 (3.5-5.0) g/dL Globulin 3.4 (1.7-4.1) g/dL Albumin/Globulin Ratio 1.3 (1.0-2.8) Lipase 62 (23-300) U/L Serum , Qual Negative (Negative) Point of care testing: Urine Dip Bedside Urine Glucose Negative Bedside Urine Bilirubin - Negative Bedside Urine Ketone - Negative Urine Specific Carey 1.015 Bedside Urine Occult Blood +++ Bedside Urine pH 6.5 Bedside Urine Protein +/- 15 Bedside Urine Urobilinogen +/- 1mg Bedside Urine Nitrite - Negative Bedside Urine Leukocytes - Negative Esterase Imaging Data CT scan - abdomen: Radiologist's impression: PROCEDURE: CT ABDOMEN PELVIS W CON INDICATIONS: ab pain severe TECHNIQUE: After the administration of oral and intravenous contrast, 5 mm thick sections acquired from the diaphragms to the symphysis. 5 mm thick coronal and sagittal reformats were performed. For radiation dose reduction, the following was used: automated exposure control, adjustment of mA and/or kV according to patient size. COMPARISON: [facility], CT, CT ABDOMEN PELVIS W CON, 09/01/2017, 12:55. [facility], CT, ABDOMEN/PELVIS WITH CONTRAST, 11/24/2012, 15:06. FINDINGS: Image quality: Diagnostic. ABDOMEN: Lung bases: Lung bases are clear. Heart size is normal. Solid organs: There is a 3 x 3 x 4 mm calculus identified at the right ureteropelvic junction with associated moderate right-sided hydronephrosis, delayed e nhancement of the right kidney, mild enlargement of the right kidney and a prominence of the right ureter. The remainder of the right ureter is unremarkable. No additional renal or ureteral calculi are evident bilaterally. The left kidney is unremarkable. No left- sided hydronephrosis is present. The gallbladder is somewhat prominent in size without significant wall thickening or adjacent inflammation. The liver, spleen, adrenals, and pancreas are otherwise unremarkable. Peritoneum and bowel: Stomach, small bowel, and colon loops are normal in caliber and wall thickness. No free fluid or air. Nodes and vessels: No retroperitoneal or mesenteric adenopathy. Aorta and inf erior vena cava are normal in caliber. Miscellaneous: No ventral hernias. PELVIS: Genitourinary: Mild prominence of the urinary bladder wall is present. The uterus and ovaries do not appear to be enlarged, but are not well characterized on CT. Miscellaneous: No inguinal hernias or adenopathy. A trace amount of free fluid within the pelvis is probably physiologic. There is no loculated fluid collection. Bones: No suspicious bony lesions. No vertebral body compression fractures. A bone island involving the left pubic bone is evident near the pubis symphysis, which is of doubtful significance. Bilateral L5 pars defects are identified. No spondylolisthesis is appreciated. Degenerative changes of the lower lumbar spine are noted. IMPRESSION: 1. 4 mm at least partially obstructing proximal right ureteral calculus at the ureteropelvic junction with associated moderate right-sided hydronephrosis. 2. Nonspecific prominence of the urinary bladder wall. Clinical correlation to exclude superimposed cystitis is recommended. 3. Bilateral L5 pars defects. No spondylolisthesis at L5-S1. Dictated by: Luis Enrique Chamberlain M.D. on 07/21/2018 at 15:16 MDM Narrative Medical decision making narrative: Patient is in quite significant pain, history of appendectomy will get abdominal CT. CT shows kidney stone. Prominent patient both initially stated that they were completely out of medication. Although patient stated that she took her dexamethasone last evening. I have given her medications for stress dosing and refilled all of her meds. They are waiting to get into the [facility] to follow up with endocrinology there. I discussed passage of kidney stone as well. At this time both patient and mother feel comfortable going home. Discharge Plan Departure Patient Disposition: Home Clinical Impression: Kidney stones Discharge Date/Time: 07/21/18 19:17 Interventions: ED Discharge Assessment Last Done: 07/21/18 19:16 Activity Restrictions/Additional Instructions: *You have been diagnosed with right-sided kidney stone *What to do: Anticipate that you pass a kidney stone within the next 1-5 days *Continue to take medications as directed Dexamethasone daily 0.25 mg as previously prescribed Hydrocortisone take 20 mg-around 8:00 p.m. this evening, then 10 mg tomorrow, than the 3rd day 5 mg, then stop [place] 1 tablet every 6 hours if needed for severe *Follow up with your primary care provider in 2-3 days, you need endocrinology *Return to ER if you should have persistent vomiting, worsening pain or any new, worsening or concerning symptoms CONTROLLED SUBSTANCE DISCHARGE (Narcotoic/benzodiazepine/Flexeril/Phenergan) 1. You have been prescribed narcotic medications, it does have acetaminophen/Tylenol/paracetamol in it so do not take extra Tylenol or Tylenol containing products 2. Please understand that we cannot provide further refills of narcotics, benzodiazepines or controlled substances through the ED and her pain management will need to be through your provider. 3. While on these medications you cannot drive or operate heavy machinery. 4. You cannot sign legal documents or perform any duties such as this. 5. As long as you're taking opiate pain medications he should also be taking a stool softener such as Colace, Dulcolax, MiraLAX or prune juice, to help avoid constipation. Prescriptions: New hydrocodone-acetaminophen [[place]] 5-325 mg tablet 1 tab PO Q4-6H PRN (Reason: pain) Qty: 10 RF: 0 hydrocortisone 10 mg tablet 20 mg PO DAILY PRN (Reason: stress) Qty: 30 RF: 0 dexamethasone 0.5 mg tablet 0.25 mg PO .HS Qty: 30 RF: 0 ondansetron 4 mg tablet,disintegrating 4 mg PO Q6-8H PRN (Reason: nausea and vomiting) Qty: 30 RF: 0 No Action Proventil HFA 90 MCG/PUFF HFA aerosol inhaler 1 puff INH PRN Qty: 17 RF: 0 ibuprofen 200 MG tablet 200 mg PO PRN PRN (Reason: Pain, Mild) Qty: 0 RF: 0 norgestimate-ethinyl estradiol [Sprintec (28)] 1 EACH tablet 1 tab PO QDAY Qty: 0 RF: 0 levothyroxine 88 MCG tablet 0.088 mg PO QDAY Qty: 90 RF: 3 mupirocin 2 % ointment 1 devyn Topical BID Qty: 22 RF: 0 Solu-Cortef (PF) 100 MG/2 ML recon soln 100 mg IV PRN Qty: 1 RF: 0 ondansetron 4 MG tablet,disintegrating 4 mg Sublingual Q4HP PRN (Reason: Nausea And Vomiting) RF: 0 citalopram 10 mg tablet 10 mg PO DAILY RF: 0 rizatriptan [Maxalt] 10 MG tablet 10 mg PO QDAY PRN (Reason: Headache) RF: 0 sertraline 100 mg tablet 200 mg PO DAILY RF: 0 ondansetron HCl [Zofran] 4 mg tablet 4 mg PO Q6-8H PRN (Reason: nausea and vomiting) Qty: 7 RF: 0 hydrocortisone 5 MG tablet 15 mg PO DAILY PRN (Reason: fever and mild disease present) RF: 0 dexamethasone 0.5 MG tablet 0.25 mg PO HS RF: 0 oxycodone 5 mg tablet 5 mg PO Q4-6H PRN (Reason: pain) Qty: 10 RF: 0 Referrals: [facility] [Outside]
[2018-07-21 14:02] LABS: Add Manual Diff / Slide Review NO; Basophils Absolute Auto 100 /uL (0-100); Basophils Percent Auto 0.6 % (0-2); Eosinophils Absolute Auto 100 /uL (0-450); Eosinophils Percent Auto 0.6 % (2-4); Hematocrit 43.1 % (36-46); Hemoglobin 14.3 g/dL (12.0-16.0); Lymphocytes Absolute Auto 1600 /uL (1100-4500); Lymphocytes Percent Auto 10.3 % (25-40); Mean Corpuscular HGB Conc 33.2 % (30-36); Mean Corpuscular Hemoglobin 28.5 PG (26-34); Mean Corpuscular Volume 85.9 fL (80-100); Monocytes Absolute Auto 1100 /uL (0-900); Monocytes Percent Auto 7.3 % (3-14); Neutrophils Absolute Auto 12300 /uL (1500-7000); Neutrophils Percent Auto 81.2 % (50-75); Platelet Count 279 X10^3/uL (150-400); Red Blood Cell Count 5.02 X10^6/uL (4.0-5.2); Red Cell Distribution Width 12.7 % (11.6-14.8); White Blood Cell Count 15.1 X10^3/uL (4.5-11.0)
[2018-07-21 14:09] LABS: Alanine Aminotransferase 15 IU/L (9-52); Albumin 4.4 g/dL (3.5-5.0); Albumin Globulin Ratio 1.3 (1.0-2.8); Alkaline Phosphatase 85 U/L (38-126); Aspartate Aminotransferase 18 IU/L (14-36); BUN Creatinine Ratio 16.3 (6-22); Bilirubin Total 0.4 mg/dL (0.2-1.3); Blood Urea Nitrogen 13 mg/dL (7-17); Calcium 9.3 mg/dL (8.4-10.2); Carbon Dioxide 22 mmol/L (22-32); Chloride 105 mmol/L (98-107); Estimated Glomerular Filt Rate > 60.0 mL/min (>60); Globulin 3.4 g/dL (1.7-4.1); Glucose 107 mg/dL (70-100); HEMOLYSIS < 15 (0-50); Lipase 62 U/L (23-300); Potassium 4.4 mmol/L (3.4-5.1); Sodium 138 mmol/L (137-145); Total Protein 7.8 g/dL (6.3-8.2)
[2018-07-21] MEDS: HYDROCORTISONE 100 MG/2 ML VIAL IV (14:09)
[2018-07-21] MEDS: MORPHINE 2 MG/ML INJ IV ×2 (14:10→16:04)
--- NOTE | 2018-07-21 14:27 | PC.NURSE ---
pt reports vomiting today x8, denies blood, diarrhea onset yesterday.
--- NOTE | 2018-07-21 15:18 | DI.CT.S_ITS ---
PROCEDURE: CT ABDOMEN PELVIS W CON INDICATIONS: ab pain severe TECHNIQUE: After the administration of oral and intravenous contrast, 5 mm thick sections acquired from the diaphragms to the symphysis. 5 mm thick coronal and sagittal reformats were performed. For radiation dose reduction, the following was used: automated exposure control, adjustment of mA and/or kV according to patient size. COMPARISON: [facility], CT, CT ABDOMEN PELVIS W CON, 09/01/2017, 12:55. [facility], CT, ABDOMEN/PELVIS WITH CONTRAST, 11/24/2012, 15:06. FINDINGS: Image quality: Diagnostic. ABDOMEN: Lung bases: Lung bases are clear. Heart size is normal. Solid organs: There is a 3 x 3 x 4 mm calculus identified at the right ureteropelvic junction with associated moderate right-sided hydronephrosis, delayed enhancement of the right kidney, mild enlargement of the right kidney and a prominence of the right ureter. The remainder of the right ureter is unremarkable. No additional renal or ureteral calculi are evident bilaterally. The left kidney is unremarkable. No left-sided hydronephrosis is present. The gallbladder is somewhat prominent in size without significant wall thickening or adjacent inflammation. The liver, spleen, adrenals, and pancreas are otherwise unremarkable. Peritoneum and bowel: Stomach, small bowel, and colon loops are normal in caliber and wall thickness. No free fluid or air. Nodes and vessels: No retroperitoneal or mesenteric adenopathy. Aorta and inferior vena cava are normal in caliber. Miscellaneous: No ventral hernias. PELVIS: Genitourinary: Mild prominence of the urinary bladder wall is present. The uterus and ovaries do not appear to be enlarged, but are not well characterized on CT. Miscellaneous: No inguinal hernias or adenopathy. A trace amount of free fluid within the pelvis is probably physiologic. There is no loculated fluid collection. Bones: No suspicious bony lesions. No vertebral body compression fractures. A bone island involving the left pubic bone is evident near the pubis symphysis, which is of doubtful significance. Bilateral L5 pars defects are identified. No spondylolisthesis is appreciated. Degenerative changes of the lower lumbar spine are noted. IMPRESSION: 1. 4 mm at least partially obstructing proximal right ureteral calculus at the ureteropelvic junction with associated moderate right-sided hydronephrosis. 2. Nonspecific prominence of the urinary bladder wall. Clinical correlation to exclude superimposed cystitis is recommended. 3. Bilateral L5 pars defects. No spondylolisthesis at L5-S1. Dictated by: Luis Enrique Chamberlain M.D. on 07/21/2018 at 15:16 Approved by: Luis Enrique Chabmerlain M.D. on 07/21/2018 at 15:21
[2018-07-21] MEDS: METOCLOPRAMIDE 10 MG/2 ML INJ IV (15:22)
--- NOTE | 2018-07-21 15:26 | PC.NURSE ---
attempt to urinate, not able to void at this time
[2018-07-21 15:35] LABS: Pregnancy Test Serum,Qual Negative (Negative)
--- NOTE | 2018-07-21 15:55 | PC.NURSE ---
PROJECT DEVELOPMENT LEADER Note: Patient states very uncomfortable and requesting pain medication. Nurse notified.
[2018-07-21] MEDS: DEXAMETHASONE 4 MG/ML VIAL IV (18:43)
[2018-07-21] MEDS: HYDROCODONE/ACET 5/325 PREPACK 1 BOTTLE MISC (18:45)
[2018-07-21] MEDS: ONDANSETRON 4 MG ODT PREPACK 1 BOTTLE MISC (18:45)
== END 2018-07-21 19:17 | disposition home or self-care (01) ==
PROVIDERS: Emergency Provider Emergency Medicine
DX: N20.0 Calculus of kidney (principal)
CPT/HCPCS: 36591; 74177; 80053; 81003; 83690; 84703; 85025; 96361; 96374; 96375; 96376; 99285; J1100; J1720; J2270; J2405; J2765; Q9967

== ENCOUNTER → 2019-03-02 18:49 | Outpatient (CLI) | payer MEDICARE, MEDICAID, SELFPAY | PROVIDERS: Visit Provider Physician Assistant | DX: R30.0 Dysuria (principal) | CPT/HCPCS: 87086 ==

== ENCOUNTER 2020-11-23 18:08 | Emergency (ER) | payer MEDICARE, MEDICAID, SELFPAY ==
[2020-11-23] VITALS (8 sets, daily range): BP systolic 113–133; BP diastolic 57–68; PULSE 57–77; RESP 16; TEMP 36.7; O2SAT 97–100; BMI 42.3
--- NOTE | 2020-11-23 18:51 | DI.US.S_ITS ---
PROCEDURE: US ABDOMEN LIMITED INDICATIONS: RUQ PAIN TECHNIQUE: Real-time scanning was performed of the abdominal and retroperitoneal organs, with image documentation. COMPARISON: [facility], CT, CT ABDOMEN PELVIS WO CON, 11/23/2020, 19:04. FINDINGS: Liver: Liver is enlarged measuring 18.4 cm with steatosis. Gallbladder: Gallbladder is unremarkable. No stones. Wall thickness is within normal limits measuring 1.9 mm. Biliary ducts: Intrahepatic bile ducts are non-dilated. Extrahepatic bile duct caliber measures 6.1 mm. Normal is 6-7 mm or less in diameter, or 10 mm or less post-cholecystectomy. Pancreas: Visualized portions of the pancreas are sonographically normal. IMPRESSION: Hepatomegaly with steatosis. Dictated by: Gretchen Davis M.D. on 11/23/2020 at 20:43 Approved by: Gretchen Davis M.D. on 11/23/2020 at 20:44
[2020-11-23 18:53] LABS: Add Manual Diff / Slide Review NO; Basophils Absolute Auto 100 /uL (0-100); Basophils Percent Auto 1.2 % (0-2); Eosinophils Absolute Auto 500 /uL (0-450); Hematocrit 41.3 % (36-46); Hemoglobin 13.9 g/dL (12.0-16.0); Lymphocytes Absolute Auto 2800 /uL (1100-4500); Lymphocytes Percent Auto 24.1 % (25-40); Mean Corpuscular HGB Conc 33.6 % (30-36); Mean Corpuscular Hemoglobin 29.2 PG (26-34); Mean Corpuscular Volume 86.9 fL (80-100); Monocytes Absolute Auto 900 /uL (0-900); Monocytes Percent Auto 7.9 % (3-14); Neutrophils Absolute Auto 7400 /uL (1500-7000); Neutrophils Percent Auto 62.8 % (50-75); Platelet Count 331 X10^3/uL (150-400); Red Blood Cell Count 4.75 X10^6/uL (4.0-5.2); Red Cell Distribution Width 12.9 % (11.6-14.8); White Blood Cell Count 11.7 X10^3/uL (4.5-11.0)
[2020-11-23] MEDS: SODIUM CHLORIDE 0.9% 1,000 ML 1000 ML IV (18:55)
[2020-11-23] MEDS: ONDANSETRON 4 MG/2 ML INJ IV (18:55)
[2020-11-23] MEDS: KETOROLAC 30 MG/ML VIAL 15 MG IV (18:55)
[2020-11-23 18:58] LABS: Calcium 9.4 mg/dL (8.4-10.2); Lipase 60 U/L (23-300); Magnesium 1.8 mg/dL (1.6-2.3)
--- NOTE | 2020-11-23 19:02 | ED.ABDPAIN ---
HPI - Abdominal Pain <Areli Schultz PA-C - Last Filed: 11/23/20 20:50> General Chief Complaint: Abdominal Pain Stated Complaint: Right Sided Abd Pain Time Seen by Provider: 11/23/20 18:13 Source: patient Mode of arrival: Ambulatory History of Present Illness HPI narrative: 25-year-old female with past medical history hypothyroidism, congenital adrenal hyperplasia, migraine, asthma, kidney stones, ovarian cysts presents to the ED with 2 days of abdominal pain. Patient reports that her symptoms started with nausea and vomiting yesterday, followed by onset of abdominal pain this morning. Patient describes the pain as being in the right flank and right upper quadrant, similar to the pain she experienced with prior kidney stones. Patient has a history of kidney stones, no invasive measures for treatment in the past. Patient endorses subjective fevers, chills, nausea, vomiting, abdominal pain, flank pain. Patient denies chest pain, shortness of breath, cough, lightheadedness, dizziness, dysuria, constipation, diarrhea, syncope. Patient takes 15 mg of hydrocortisone daily, which she took today. Patient took some Zofran at 11:00 a.m. this morning with minimal relief. Related Data Home Medications Medication Instructions Recorded Confirmed albuterol sulfate 90 mcg/actuation 1 puff INH PRN #17 gm 11/04/11 12/19/18 aerosol inhaler (Proventil HFA) ibuprofen 200 mg tablet 200 mg PO PRN PRN #0 11/24/12 03/02/19 norgestimate 0.25 mg-ethinyl 1 tab PO QDAY #0 12/06/16 12/19/18 estradiol 35 mcg tablet (Sprintec (28)) dexamethasone 0.5 mg tablet 0.25 mg PO HS 08/23/17 03/02/19 citalopram 10 mg tablet 10 mg PO DAILY 04/13/18 12/19/18 rizatriptan 10 mg tablet (Maxalt) 10 mg PO QDAY PRN 04/13/18 03/02/19 Previous Rx's Medication Instructions Recorded levothyroxine 88 mcg tablet 0.088 mg PO QDAY #90 tab 12/27/16 hydrocortisone sod succ (PF) 100 100 mg IV PRN #1 vial 03/21/17 mg/2 mL solution for injection (Solu-Cortef Act-O-Vial (PF)) mupirocin 2 % topical ointment 1 devyn TOPICAL BID #22 gm 03/21/17 hydrocortisone 10 mg tablet 20 mg PO DAILY PRN #30 tab 07/21/18 ondansetron 4 mg disintegrating 4 mg PO Q6-8H PRN #30 tab 07/21/18 tablet albuterol sulfate 90 mcg/actuation 2 puff INHALATION Q4-6H PRN #8 gram 12/19/18 aerosol inhaler (Ventolin HFA) Allergies Allergy/AdvReac Type Severity Reaction Status Date / Time hydromorphone [HYDROMORPHONE] Allergy Mild RESP Verified 03/02/19 18:13 DISTRESS adhesive tape Allergy Unknown Rash Verified 03/02/19 18:13 Review of Systems <Areli Schultz PA-C - Last Filed: 11/23/20 20:50> Constitutional Constitutional: Reports chills, Denies fatigue, Reports fever(s), Denies frequent falls, Denies lethargy and Denies weakness Comments: Subjective fever, chills Eyes Eyes: Denies change in vision, Denies eye discharge, Denies irritation and Denies loss of vision ENT Ears, Nose, Mouth, and Throat: Denies change in voice, Denies dizziness, Denies neck pain, Denies sore throat and Denies throat swelling Cardiovascular Cardiovascular: Denies chest pain, Denies irregular heart rhythm, Denies lightheadedness, Denies palpitations, Denies dyspnea, Denies dyspnea on exertion and Denies orthopnea Respiratory Respiratory: Denies cough, Denies dyspnea, Denies dyspnea on exertion and Denies wheezing Gastrointestinal Gastrointestinal: Reports abdominal pain, Denies change in bowel habits, Denies diarrhea, Reports nausea and Reports vomiting Comments: Right upper quadrant pain, right flank pain, nausea, vomiting Musculoskeletal Musculoskeletal: Denies neck pain and Denies numbness Integumentary/Breasts Skin/Breast: Denies pruritus, Denies erythema, Denies rash and Denies wounds Neurologic Neurologic: Denies behavioral changes, Denies confusion, Denies dizziness, Denies frequent falls, Denies loss of vision, Denies numbness and Denies weakness Psychiatric Psychiatric: Denies anxiety, Denies behavioral changes, Denies confusion, Denies depression, Denies homicidal ideation and Denies suicidal ideation Endocrine Endocrine: Denies fatigue, Denies flushing and Denies palpitations Hematologic/Lymphatic Hematologic/Lymphatic: Denies easy bruising Allergic/Immunologic Allergic/Immunologic: Denies urticaria, Denies throat swelling and Denies wheezing Patient History <Areli Schultz PA-C - Last Filed: 11/23/20 20:50> Medical History (Updated 11/23/20 @ 20:35 by Areli Schultz PA-C) Asthma Congenital adrenal hypoplasia Migraines Social History Smoking Status: Never smoker Smoking Status: Never smoker alcohol intake frequency: other Substance Use Type: does not use Exam <Areli Schultz PA-C - Last Filed: 11/23/20 20:50> Initial Vital Signs Initial Vital Signs: Vital Signs Temperature 98.1 F 11/23/20 18:10 Pulse Rate 77 11/23/20 18:10 Respiratory Rate 16 11/23/20 18:10 Blood Pressure 128/60 11/23/20 18:10 Pulse Oximetry 100 11/23/20 18:10 Const General: cooperative HENMT Head: normocephalic and atraumatic Ears: external ears normal and TM's normal bilaterally Nose: external nose normal and No nasal discharge Face and sinus: sinuses nontender, face symmetric, no sinus tenderness and No dry mucous membranes Mouth: oral mucosae normal and moist mucous membranes Teeth and gingiva: dentition normal Throat: tonsils normal and uvula midline Eyes General: appearance normal, both eyes and all related structures Eyelids: eyelids normal Conjunctivae: conjunctivae normal Sclera: sclerae normal Pupils: PERRL EOM: EOM intact bilaterally Neck Neck: normal visual inspection, trachea midline, No lymphadenopathy, No midline deformity and No JVD Lymphatic: No lymphedema Chest Chest: normal inspection of the chest Resp Effort & Inspection: normal respiratory effort, able to speak in complete sentences, no respiratory distress and no use of accessory muscles Auscultation: clear to auscultation bilaterally, no rales, no rhonchi and no wheezes Cardio Rate: regular rate Rhythm: regular rhythm Heart Sounds: no click, no gallops, no murmurs and no rubs Pulses: normal peripheral pulses GI Inspection: non-distended Palpation: soft, no hepatosplenomegaly, No guarding, No pulsatile mass and No tender Auscultation: normal bowel sounds Other: Abdomen is soft, nondistended. Tender to palpation in the right upper quadrant. Positive right-sided CVA tenderness. No guarding, rebound. General: CVA tenderness (Right-sided) Back/Spine/Pelvis Back: No CVA tenderness Cervical Spine: cervical ROM normal and No pain with cervical ROM Thoracic/Lumbar Spine: thoracic and lumbar spine normal to inspection Skin General: no rashes or lesions noted, No jaundice and No petechiae Neuro General: patient alert, patient oriented x3, gait normal and no focal motor deficits Speech: speech normal Extrem General: full ROM, no clubbing, cyanosis or edema, no pedal edema and no calf tenderness Psych Appearance: well kempt Mental Status: mental status grossly normal Attitude: cooperative Thought Content: normal and suicidality Judgment: judgment good <Stacia Menjivar DO - Last Filed: 11/24/20 01:37> Initial Vital Signs Initial Vital Signs: Vital Signs Temperature 98.1 F 11/23/20 18:10 Pulse Rate 77 11/23/20 18:10 Respiratory Rate 16 11/23/20 18:10 Blood Pressure 128/60 11/23/20 18:10 Pulse Oximetry 100 11/23/20 18:10 Course <Areli Schultz PA-C - Last Filed: 11/23/20 20:50> Course Course Narrative: Chest x-ray, ultrasound abdomen, CT abdomen pelvis negative. Labs within normal limits. Patient's symptoms improved. Benign abdomen on repeat abdominal exam. Will discharge home with ED return precautions. Orders Ordered: ED Orders 11/23/20 18:25 Calcium Stat Complete Blood Count AUTO DIFF Stat Comprehensive Metabolic Panel Stat Lipase Stat Magnesium Stat 11/23/20 18:51 US abdomen limited Stat 11/23/20 19:07 CT abdomen pelvis wo con Stat 11/23/20 19:41 XR chest 2V Stat Discontinued Medications Sodium Chloride (Normal Saline 0.9%) 1,000 mls @ 1,000 mls/hr IV BOLUS ONE Stop: 11/23/20 19:44 Last Infusion: 11/23/20 20:21 Dose: 0 mls/hr Documented by: Admin: 11/23/20 18:55 Dose: 1,000 mls/hr Documented by: NADIA Ketorolac Tromethamine (Ketorolac 30 Mg/Ml Vial) 15 mg IV NOW ONE Stop: 11/23/20 18:46 Last Admin: 11/23/20 18:55 Dose: 15 mg Documented by: NADIA Ondansetron HCl (Ondansetron 4 Mg/2 Ml Inj) 4 mg IV NOW ONE Stop: 11/23/20 18:46 Last Admin: 11/23/20 18:55 Dose: 4 mg Documented by: NADIA Vital Signs Vital signs: Vital Signs - 8 hr 11/23/20 18:10 11/23/20 19:16 11/23/20 19:23 Temperature 98.1 F Pulse Rate 77 68 66 Respiratory Rate 16 Blood Pressure 128/60 114/60 Pulse Oximetry 100 99 99 11/23/20 19:30 11/23/20 20:00 11/23/20 20:24 Temperature Pulse Rate 63 64 69 Respiratory Rate Blood Pressure 113/57 L 120/57 L 133/62 Pulse Oximetry 98 97 98 11/23/20 20:30 11/23/20 20:31 Temperature Pulse Rate 65 57 L Respiratory Rate Blood Pressure 129/68 Pulse Oximetry 98 99 <Stacia Menjivar, - Last Filed: 11/24/20 01:37> Orders Ordered: ED Orders 11/23/20 18:25 Calcium Stat Complete Blood Count AUTO DIFF Stat Comprehensive Metabolic Panel Stat Lipase Stat Magnesium Stat 11/23/20 18:51 US abdomen limited Stat 11/23/20 19:07 CT abdomen pelvis wo con Stat 11/23/20 19:41 XR chest 2V Stat Discontinued Medications Sodium Chloride (Normal Saline 0.9%) 1,000 mls @ 1,000 mls/hr IV BOLUS ONE Stop: 11/23/20 19:44 Last Infusion: 11/23/20 20:21 Dose: 0 mls/hr Documented by: Admin: 11/23/20 18:55 Dose: 1,000 mls/hr Documented by: NADIA Ketorolac Tromethamine (Ketorolac 30 Mg/Ml Vial) 15 mg IV NOW ONE Stop: 11/23/20 18:46 Last Admin: 11/23/20 18:55 Dose: 15 mg Documented by: NADIA Ondansetron HCl (Ondansetron 4 Mg/2 Ml Inj) 4 mg IV NOW ONE Stop: 11/23/20 18:46 Last Admin: 11/23/20 18:55 Dose: 4 mg Documented by: BSMEN Vital Signs Vital signs: Vital Signs - 8 hr 11/23/20 18:10 11/23/20 19:16 11/23/20 19:23 Temperature 98.1 F Pulse Rate 77 68 66 Respiratory Rate 16 Blood Pressure 128/60 114/60 Pulse Oximetry 100 99 99 11/23/20 19:30 11/23/20 20:00 11/23/20 20:24 Temperature Pulse Rate 63 64 69 Respiratory Rate Blood Pressure 113/57 L 120/57 L 133/62 Pulse Oximetry 98 97 98 11/23/20 20:30 11/23/20 20:31 Temperature Pulse Rate 65 57 L Respiratory Rate Blood Pressure 129/68 Pulse Oximetry 98 99 MDM - Abdominal Pain <Arlei Schultz PA-C - Last Filed: 11/23/20 20:50> Lab Data Lab results narrative: Labs within normal limits, no UTI, neg hCG Result diagrams: 11/23/20 18:25 11/23/20 18:25 Labs: Lab Results 11/23/20 11/23/20 11/23/20 Range/Units 18:25 18:25 18:25 WBC 11.7 H (4.5-11.0) X10^3/uL RBC 4.75 (4.0-5.2) X10^6/uL Hgb 13.9 (12.0-16.0) g/dL Hct 41.3 (36-46) % MCV 86.9 (80-100) fL MCH 29.2 (26-34) PG MCHC 33.6 (30-36) % RDW 12.9 (11.6-14.8) % Plt Count 331 (150-400) X10^3/uL Neut % (Auto) 62.8 (50-75) % Lymph % (Auto) 24.1 L (25-40) % Gordon % (Auto) 7.9 (3-14) % Eos % (Auto) 4.0 (2-4) % Baso % (Auto) 1.2 (0-2) % Neut # (Auto) 7400 H (8934-2802) /uL Lymph # (Auto) 2800 (6602-4517) /uL Gordon # (Auto) 900 (0-900) /uL Eos # (Auto) 500 H (0-450) /uL Baso # (Auto) 100 (0-100) /uL Sodium 137 (137-145) mmol/L Potassium 3.9 (3.4-5.1) mmol/L Chloride 102 (98-107) mmol/L Carbon Dioxide 29 (22-32) mmol/L BUN 10 (7-17) mg/dL Creatinine 0.60 (0.52-1.04) mg/dL Estimated GFR > 60.0 (>60) mL/min BUN/Creatinine Ratio 16.7 (6-22) Glucose 99 (70-100) mg/dL Calcium 9.4 9.4 (8.4-10.2) mg/dL Magnesium 1.8 (1.6-2.3) mg/dL Total Bilirubin 0.5 (0.2-1.3) mg/dL AST 29 (14-36) IU/L ALT 23 (<35) IU/L Alkaline Phosphatase 76 (38-126) U/L Total Protein 7.7 (6.3-8.2) g/dL Albumin 4.5 (3.5-5.0) g/dL Globulin 3.2 (1.7-4.1) g/dL Albumin/Globulin Ratio 1.4 (1.0-2.8) Lipase 60 (23-300) U/L Point of care testing: Point of Care Testing Test Results Negative Urine Dip Bedside Urine Glucose Negative Bedside Urine Bilirubin - Negative Bedside Urine Ketone - Negative Urine Specific Thatcher 1.020 Bedside Urine Occult Blood - Negative Bedside Urine pH 6.0 Bedside Urine Protein - Negative Bedside Urine Urobilinogen - Negative Bedside Urine Nitrite - Negative Bedside Urine Leukocytes - Negative Esterase Imaging Data CT scan - abdomen/pelvis: Radiologist's Impression: PROCEDURE:? CT ABDOMEN PELVIS WO CON ? INDICATIONS:? kidney stone, RUQ pain ? TECHNIQUE:? Axial sections were acquired from the lung bases to the pubic symphysis.? Coronal and sagittal reformats were performed.? For radiation dose reduction, the following was used: ?automated exposure control, adjustment of mA and/or kV according to patient size.? ? COMPARISON:? ? [facility], CT, CT ABDOMEN PELVIS W CON, 07/21/2018, 15:45. ? FINDINGS:? Image quality:? Excellent.? ? Lung bases:? Unremarkable.? ? Heart:? No significant findings. ? URINARY: Right Kidney: ? No stones or hydronephrosis.? Right Ureter:? No hydroureter.? Previous right proximal ureteral calculus is no longer visualized as seen in 2019. ? Left Kidney: ? No stones or hydronephrosis. Left Ureter:? No hydroureter.? ? Bladder:? Normal wall thickness. No stones. ? ? ? ABDOMEN: Liver:? Liver is enlarged with mild steatosis. Gallbladder:? The gallbladder is unremarkable.? ? Biliary ducts:? Unremarkable.? ? Pancreas:? Unremarkable.? ? Spleen:? Splenule is incidentally noted. Adrenal Glands:? Unremarkable.? ? ? Stomach and Bowel:? Stomach, small bowel loops, and colon are nonobstructive.? Scattered diverticula without visualized inflammatory change. Peritoneum:? No abnormal intraperitoneal fluid.? No free air.? ? Ventral Wall: ? No hernia.? Abdominal Nodes:? No enlarged retroperitoneal or mesenteric lymph nodes.? Vessels:? Aorta and inferior vena cava are normal in size.? ? PELVIS: Pelvic Organs:? Unremarkable.? ? Pelvic Nodes: Unremarkable. Miscellaneous: No inguinal hernias are seen. ? ? ? Bones:? L5 pars defect is present. ? IMPRESSION:? ? 1. No nephro or ureterolithiasis.? No bladder calculi. ? 2. Diverticulosis.? ? ? Dictated by: Gretchen Davis M.D. on 11/23/2020 at 19:20 ? ? Approved by: Gretchen Davis M.D. on 11/23/2020 at 19:24 ? Chest x-ray: Radiologist's Impression: PROCEDURE:? XR CHEST 2V ? INDICATIONS:? Chest pain ? TECHNIQUE:? 2 views of the chest were acquired.? ? COMPARISON:? [facility], , CHEST 1 VIEW, 01/03/2016, 15:11. ? FINDINGS:? ? Surgical changes and devices:? None.? ? Lungs and pleura:? Lungs are clear.? No pleural effusions or pneumothorax.? ? Mediastinum:? Mediastinal contours are normal.? Heart size is normal.? ? Bones and chest wall:? No suspicious bony abnormalities.? Soft tissues appear unremarkable.? ? IMPRESSION:? No acute pulmonary process. ? ? Dictated by: Gretchen Davis M.D. on 11/23/2020 at 20:23 ? ? Approved by: Gretchen Davis M.D. on 11/23/2020 at 20:23 ? US - abdomen: Radiologist's Impression: PROCEDURE:? US ABDOMEN LIMITED ? INDICATIONS:? RUQ PAIN ? TECHNIQUE:? Real-time scanning was performed of the abdominal and retroperitoneal organs, with image documentation.? ? COMPARISON:? [facility], CT, CT ABDOMEN PELVIS WO CON, 11/23/2020, 19:04. ? FINDINGS:? ? Liver:? Liver is enlarged measuring 18.4 cm with steatosis. ? Gallbladder:? Gallbladder is unremarkable.? No stones.? Wall thickness is within normal limits measuring 1.9 mm. ? Biliary ducts:? Intrahepatic bile ducts are non-dilated.? Extrahepatic bile duct caliber measures 6.1 mm.? Normal is 6-7 mm or less in diameter, or 10 mm or less post-cholecystectomy.? ? Pancreas:? Visualized portions of the pancreas are sonographically normal.? ? ? IMPRESSION:? Hepatomegaly with steatosis. ? Dictated by: Gretchen Davis M.D. on 11/23/2020 at 20:43 ? ? Approved by: Gretchen Davis M.D. on 11/23/2020 at 20:44 ? MDM Narrative Medical decision making narrative: 25-year-old female with past medical history hypothyroidism, congenital adrenal hyperplasia, migraine, asthma, kidney stones, ovarian cysts presents to the ED with 2 days of abdominal pain. Concern for kidney stones versus coli cystitis versus cholelithiasis versus choledocholithiasis versus cholangitis versus pancreatitis versus UTI. Order labs, UA, lipase, hcg, CT abdomen pelvis, ultrasound right upper quadrant. Will give Zofran, Toradol, IV fluids. Will consider stress dose steroids if signs of adrenal crisis. <Stacia Menjivar, DO - Last Filed: 11/24/20 01:37> Lab Data Labs: Lab Results 11/23/20 11/23/20 11/23/20 Range/Units 18:25 18:25 18:25 WBC 11.7 H (4.5-11.0) X10^3/uL RBC 4.75 (4.0-5.2) X10^6/uL Hgb 13.9 (12.0-16.0) g/dL Hct 41.3 (36-46) % MCV 86.9 (80-100) fL MCH 29.2 (26-34) PG MCHC 33.6 (30-36) % RDW 12.9 (11.6-14.8) % Plt Count 331 (150-400) X10^3/uL Neut % (Auto) 62.8 (50-75) % Lymph % (Auto) 24.1 L (25-40) % Gordon % (Auto) 7.9 (3-14) % Eos % (Auto) 4.0 (2-4) % Baso % (Auto) 1.2 (0-2) % Neut # (Auto) 7400 H (2601-8941) /uL Lymph # (Auto) 2800 (2146-1993) /uL Gordon # (Auto) 900 (0-900) /uL Eos # (Auto) 500 H (0-450) /uL Baso # (Auto) 100 (0-100) /uL Sodium 137 (137-145) mmol/L Potassium 3.9 (3.4-5.1) mmol/L Chloride 102 (98-107) mmol/L Carbon Dioxide 29 (22-32) mmol/L BUN 10 (7-17) mg/dL Creatinine 0.60 (0.52-1.04) mg/dL Estimated GFR > 60.0 (>60) mL/min BUN/Creatinine Ratio 16.7 (6-22) Glucose 99 (70-100) mg/dL Calcium 9.4 9.4 (8.4-10.2) mg/dL Magnesium 1.8 (1.6-2.3) mg/dL Total Bilirubin 0.5 (0.2-1.3) mg/dL AST 29 (14-36) IU/L ALT 23 (<35) IU/L Alkaline Phosphatase 76 (38-126) U/L Total Protein 7.7 (6.3-8.2) g/dL Albumin 4.5 (3.5-5.0) g/dL Globulin 3.2 (1.7-4.1) g/dL Albumin/Globulin Ratio 1.4 (1.0-2.8) Lipase 60 (23-300) U/L Point of care testing: Point of Care Testing Test Results Negative Urine Dip Bedside Urine Glucose Negative Bedside Urine Bilirubin - Negative Bedside Urine Ketone - Negative Urine Specific Thatcher 1.020 Bedside Urine Occult Blood - Negative Bedside Urine pH 6.0 Bedside Urine Protein - Negative Bedside Urine Urobilinogen - Negative Bedside Urine Nitrite - Negative Bedside Urine Leukocytes - Negative Esterase Discharge Plan Departure Patient Disposition: Home Clinical Impression: Abdominal pain Qualifiers: Abdominal location: right upper quadrant Qualified Code(s): R10.11 - Right upper quadrant pain Instructions: DI for Abdominal Pain-Adult Activity Restrictions/Additional Instructions: You were evaluated for abdominal pain in the ED today. Your CT abdomen and pelvis, abdominal ultrasound, chest x-ray, labs were normal. It is likely that you are experiencing a musculoskeletal strain. Your symptoms improved with ketorolac. You can continue to take ibuprofen as needed for the pain. Please return to the ED if you experience worsening pain, nausea, vomiting, fever, chills. Prescriptions: No Action albuterol sulfate [Ventolin HFA] 90 mcg/actuation HFA aerosol inhaler 2 puff INHALATION Q4-6H PRN (Reason: shortness of breath or wheezing) Qty: 8 RF: 0 Proventil HFA 90 MCG/PUFF HFA aerosol inhaler 1 puff INH PRN Qty: 17 RF: 0 ibuprofen 200 MG tablet 200 mg PO PRN PRN (Reason: Pain, Mild) Qty: 0 RF: 0 norgestimate-ethinyl estradiol [Sprintec (28)] 1 EACH tablet 1 tab PO QDAY Qty: 0 RF: 0 levothyroxine 88 MCG tablet 0.088 mg PO QDAY Qty: 90 RF: 3 mupirocin 2 % ointment 1 devyn Topical BID Qty: 22 RF: 0 Solu-Cortef Act-O-Vial (PF) 100 MG/2 ML recon soln 100 mg IV PRN Qty: 1 RF: 0 citalopram 10 mg tablet 10 mg PO DAILY RF: 0 rizatriptan [Maxalt] 10 MG tablet 10 mg PO QDAY PRN (Reason: Headache) RF: 0 hydrocortisone 10 mg tablet 20 mg PO DAILY PRN (Reason: stress) Qty: 30 RF: 0 ondansetron 4 mg tablet,disintegrating 4 mg PO Q6-8H PRN (Reason: nausea and vomiting) Qty: 30 RF: 0 dexamethasone 0.5 MG tablet 0.25 mg PO HS RF: 0 Referrals: Magui Paris ARNP [Primary Care Provider] - <Stacia Menjivar DO - Last Filed: 11/24/20 01:37> Cosign ED Attending Cosignature Attestation: I was immediately available in the department for consultation. Documentation has been reviewed. I agree with assessment and plan.
--- NOTE | 2020-11-23 19:07 | DI.CT.S_ITS ---
PROCEDURE: CT ABDOMEN PELVIS WO CON INDICATIONS: kidney stone, RUQ pain TECHNIQUE: Axial sections were acquired from the lung bases to the pubic symphysis. Coronal and sagittal reformats were performed. For radiation dose reduction, the following was used: automated exposure control, adjustment of mA and/or kV according to patient size. COMPARISON: [facility], CT, CT ABDOMEN PELVIS W CON, 07/21/2018, 15:45. FINDINGS: Image quality: Excellent. Lung bases: Unremarkable. Heart: No significant findings. URINARY: Right Kidney: No stones or hydronephrosis. Right Ureter: No hydroureter. Previous right proximal ureteral calculus is no longer visualized as seen in 2019. Left Kidney: No stones or hydronephrosis. Left Ureter: No hydroureter. Bladder: Normal wall thickness. No stones. ABDOMEN: Liver: Liver is enlarged with mild steatosis. Gallbladder: The gallbladder is unremarkable. Biliary ducts: Unremarkable. Pancreas: Unremarkable. Spleen: Splenule is incidentally noted. Adrenal Glands: Unremarkable. Stomach and Bowel: Stomach, small bowel loops, and colon are nonobstructive. Scattered diverticula without visualized inflammatory change. Peritoneum: No abnormal intraperitoneal fluid. No free air. Ventral Wall: No hernia. Abdominal Nodes: No enlarged retroperitoneal or mesenteric lymph nodes. Vessels: Aorta and inferior vena cava are normal in size. PELVIS: Pelvic Organs: Unremarkable. Pelvic Nodes: Unremarkable. Miscellaneous: No inguinal hernias are seen. Bones: L5 pars defect is present. IMPRESSION: 1. No nephro or ureterolithiasis. No bladder calculi. 2. Diverticulosis. Dictated by: Gretchen Davis M.D. on 11/23/2020 at 19:20 Approved by: Gretchen Davis M.D. on 11/23/2020 at 19:24
--- NOTE | 2020-11-23 19:41 | DI.RAD.S_ITS ---
PROCEDURE: XR CHEST 2V INDICATIONS: Chest pain TECHNIQUE: 2 views of the chest were acquired. COMPARISON: [facility], , CHEST 1 VIEW, 01/03/2016, 15:11. FINDINGS: Surgical changes and devices: None. Lungs and pleura: Lungs are clear. No pleural effusions or pneumothorax. Mediastinum: Mediastinal contours are normal. Heart size is normal. Bones and chest wall: No suspicious bony abnormalities. Soft tissues appear unremarkable. IMPRESSION: No acute pulmonary process. Dictated by: Gretchen Davis M.D. on 11/23/2020 at 20:23 Approved by: Gretchen Davis M.D. on 11/23/2020 at 20:23
[2020-11-23 20:18] LABS: Alanine Aminotransferase 23 IU/L (<35); Albumin 4.5 g/dL (3.5-5.0); Albumin Globulin Ratio 1.4 (1.0-2.8); Alkaline Phosphatase 76 U/L (38-126); Aspartate Aminotransferase 29 IU/L (14-36); BUN Creatinine Ratio 16.7 (6-22); Bilirubin Total 0.5 mg/dL (0.2-1.3); Blood Urea Nitrogen 10 mg/dL (7-17); Calcium 9.4 mg/dL (8.4-10.2); Carbon Dioxide 29 mmol/L (22-32); Chloride 102 mmol/L (98-107); Estimated Glomerular Filt Rate > 60.0 mL/min (>60); Globulin 3.2 g/dL (1.7-4.1); Glucose 99 mg/dL (70-100); HEMOLYSIS 21 (0-50); Potassium 3.9 mmol/L (3.4-5.1); Sodium 137 mmol/L (137-145); Total Protein 7.7 g/dL (6.3-8.2)
== END 2020-11-23 20:54 | disposition home or self-care (01) ==
PROVIDERS: Emergency Provider Student in an Organized Health Care Education/Training Program; PCP Nurse Practitioner Family
DX: R10.11 Right upper quadrant pain (principal); R11.2 Nausea with vomiting, unspecified
CPT/HCPCS: 36415; 71046; 74176; 76705; 80053; 81003; 81025; 82310; 83690; 83735; 85025; 96361; 96374; 96375; 99284; 99285; J1885; J2405

== ENCOUNTER → 2023-02-06 07:00 | Outpatient (CLI) | payer MEDICARE, MEDICAID, SELFPAY ==
[2023-02-06 08:37] LABS: Albumin 4.2 g/dL (3.5-5.0); BUN Creatinine Ratio 16.2 (6-22); Blood Urea Nitrogen 12 mg/dL (7-17); Calcium 9.5 mg/dL (8.4-10.2); Carbon Dioxide 27 mmol/L (22-32); Chloride 100 mmol/L (98-107); Estimated Glomerular Filt Rate > 60 mL/min (>60); Glucose 104 mg/dL (70-100); HEMOLYSIS < 15 (0-50); Phosphorous 4.1 mg/dL (2.5-4.5); Potassium 3.7 mmol/L (3.4-5.1); Sodium 136 mmol/L (137-145)
[2023-02-06 08:50] LABS: Free T4, Direct Thyroxine 1.21 ng/dL (0.78-2.19)
[2023-02-06 09:04] LABS: Thyroid Stimulating Hormone 3.02 uIU/mL (0.47-4.68)
[2023-02-08 10:43] LABS: Dehydroepiandrosterone Sulfate 20.1 ug/dL (84.8-378.0)
[2023-02-13 10:44] LABS: Percent Free Testosterone 2.35 % (0.50-2.80); Testosterone Free 0.83 ng/dL (0.10-0.85); Testosterone Total 35.4 ng/dL (10.0-55.0)
[2023-02-16 13:14] LABS: Plama Renin, LC/MS/MS 0.902
[2023-02-16 13:15] LABS: Aldosterone/Renin Activity Rat 6.8
== END ==
PROVIDERS: PCP Nurse Practitioner Family; Referring Provider Student in an Organized Health Care Education/Training Program; Visit Provider Student in an Organized Health Care Education/Training Program
DX: E25.0 Congenital adrenogenital disorders associated with enzyme deficiency (principal)
CPT/HCPCS: 36415; 80069; 82088; 82627; 83498; 84244; 84402; 84403; 84439; 84443

== ENCOUNTER → 2023-09-06 06:50 | Outpatient (CLI) | payer MEDICARE, MEDICAID, SELFPAY ==
[2023-09-06 07:52] LABS: Albumin 4.1 g/dL (3.5-5.0); BUN Creatinine Ratio 13.3 (6-22); Blood Urea Nitrogen 11 mg/dL (7-17); Calcium 9.1 mg/dL (8.4-10.2); Carbon Dioxide 28 mmol/L (22-32); Chloride 104 mmol/L (98-107); Estimated Glomerular Filt Rate > 60 mL/min (>60); Glucose 111 mg/dL (70-100); HEMOLYSIS < 15 (0-50); Phosphorous 4.2 mg/dL (2.5-4.5); Potassium 4.1 mmol/L (3.4-5.1); Sodium 138 mmol/L (137-145)
[2023-09-06 08:07] LABS: Free T4, Direct Thyroxine 1.19 ng/dL (0.78-2.19)
[2023-09-06 08:21] LABS: Thyroid Stimulating Hormone 2.43 uIU/mL (0.47-4.68)
[2023-09-08 11:00] LABS: Dehydroepiandrosterone Sulfate 17.2 ug/dL (84.8-378.0)
== END ==
PROVIDERS: PCP Nurse Practitioner Family; Referring Provider Student in an Organized Health Care Education/Training Program; Visit Provider Student in an Organized Health Care Education/Training Program
DX: E25.0 Congenital adrenogenital disorders associated with enzyme deficiency (principal); E27.1 Primary adrenocortical insufficiency; Z83.2 Family history of diseases of the blood and blood-forming organs and certain disorders involving the immune mechanism
CPT/HCPCS: 36415; 80069; 81241; 82627; 83498; 84402; 84403; 84439; 84443

== ENCOUNTER → 2024-01-23 14:12 | Outpatient (CLI) | payer MEDICARE, MEDICAID, SELFPAY ==
[2024-01-23 16:12] LABS: Albumin 4.6 g/dL (3.5-5.0); BUN Creatinine Ratio 15.9 (6-22); Blood Urea Nitrogen 13 mg/dL (7-17); Calcium 9.6 mg/dL (8.4-10.2); Carbon Dioxide 27 mmol/L (22-32); Chloride 99 mmol/L (98-107); Estimated Glomerular Filt Rate > 60 mL/min (>60); Glucose 85 mg/dL (70-100); HEMOLYSIS < 15 (0-50); Phosphorous 4.1 mg/dL (2.5-4.5); Potassium 3.8 mmol/L (3.4-5.1); Sodium 136 mmol/L (137-145)
[2024-01-23 16:29] LABS: Free T4, Direct Thyroxine 1.03 ng/dL (0.78-2.19)
[2024-01-23 16:43] LABS: Thyroid Stimulating Hormone 0.053 uIU/mL (0.47-4.68)
[2024-01-28 08:39] LABS: Testosterone, Total 29.7 ng/dL (10.0-55.0); Testosterone,Free 0.5 pg/mL (0.0-4.2)
== END ==
PROVIDERS: PCP Nurse Practitioner Family; Referring Provider Student in an Organized Health Care Education/Training Program; Visit Provider Student in an Organized Health Care Education/Training Program
DX: E03.9 Hypothyroidism, unspecified (principal); R21 Rash and other nonspecific skin eruption
CPT/HCPCS: 36415; 80069; 83498; 84402; 84403; 84439; 84443; 86038; 86160; 86225; 86235; 86431

== ENCOUNTER 2024-07-21 11:18 | Emergency (ER) | payer MEDICARE, MEDICAID, SELFPAY ==
[2024-07-21] VITALS (8 sets, daily range): BP systolic 113–152; BP diastolic 57–86; PULSE 67–88; RESP 16–18; TEMP 36.7; O2SAT 93–100; BMI 40.8
[2024-07-21 11:49] LABS: Urine Volume 8
[2024-07-21] MEDS: ONDANSETRON 4 MG/2 ML INJ IV (11:54)
[2024-07-21 11:57] LABS: Bacteria Urine Few (2-10); Culture Indicated Urine Cult Not Indicated; RBC Urine 1-5/HPF (0-5/HPF); Squamous Epithelial Cell Urine 1-5 /HPF (0-5/HPF); WBC Urine 0-1/HPF (0-5/HPF)
--- NOTE | 2024-07-21 11:59 | PC.NURSE ---
nausea has decreased
--- NOTE | 2024-07-21 12:44 | ED.NAVMDI ---
HPI - Nausea/Vomiting/Diarrhea General Chief complaint: Nausea/Vomiting/Diarrhea Stated complaint: Vomiting, Congenital Adrenalhyperplasia Time Seen by Provider: 07/21/24 12:42 Source: patient, RN notes reviewed and old records reviewed Mode of arrival: Ambulatory Limitations: no limitations History of Present Illness HPI Narrative: 28-year-old female history of congenital adrenal hypoplasia, asthma, migraines on dexamethasone and Humira. Patient presents with concern for adrenal crisis. Patient states she had gone up to [employer] for a friend's birthday green party had cleaned her house has a present she states all the fumes started to give her headache she developed a migraine which she gets sometimes. She states she started having nausea and vomiting with the migraine and has not been able to stop. States headache still present but very similar to her prior migraines. She denies any fevers. No chest pain or shortness of breath. Has not been able to keep keep down any of her anti abortive medications for her migraines. She denies any abdominal back or flank pain. Denies any diarrhea or constipation, no urinary symptoms. No rash or skin changes. Patient has not had any daily medications did give sulfa shot of Solu-Cortef 1:00 a.m. in the morning she was unsure of the dosage. She has not given herself her Humira shot today. She states allergy to Dilaudid. No tobacco, occasional alcohol, no recreational drugs. She was accompanied by her mother. Home medications include Humira, fluoxetine, rizatriptan, I, levothyroxine, dexamethasone, phentermine. Related Data Home Medications Medication Instructions Recorded Confirmed albuterol sulfate 90 mcg/actuation 1 puff INH PRN ##17 11/04/11 12/19/18 aerosol inhaler (Proventil HFA) ibuprofen 200 mg tablet 200 mg PO PRN PRN Pain, Mild ##0 11/24/12 03/02/19 norgestimate 0.25 mg-ethinyl 1 tab PO QDAY ##0 12/06/16 12/19/18 estradiol 0.035 mg tablet (Sprintec (28)) dexamethasone 0.5 mg tablet 0.25 mg PO HS 08/23/17 03/02/19 citalopram 10 mg tablet 10 mg PO DAILY 04/13/18 12/19/18 rizatriptan 10 mg tablet (Maxalt) 10 mg PO QDAY PRN Headache 04/13/18 03/02/19 Previous Rx's Medication Instructions Recorded levothyroxine 88 mcg tablet 0.088 mg PO QDAY #90 tabs 12/27/16 hydrocortisone sod succ (PF) 100 100 mg (2 mL) IV PRN #1 vial 03/21/17 mg/2 mL solution for injection (Solu-Cortef Act-O-Vial (PF)) mupirocin 2 % topical ointment 1 devyn topical BID ##22 03/21/17 hydrocortisone 10 mg tablet 20 mg (2 x 10 mg) PO DAILY PRN 07/21/18 stress #30 tabs ondansetron 4 mg disintegrating 4 mg PO Q6-8H PRN nausea and 07/21/18 tablet vomiting #30 tabs albuterol sulfate 90 mcg/actuation 2 puff inhalation Q4-6H PRN 12/19/18 aerosol inhaler (Ventolin HFA) shortness of breath or wheezing #8 grams Allergies Allergy/AdvReac Type Severity Reaction Status Date / Time hydromorphone [HYDROMORPHONE] Allergy Mild RESP Verified 07/21/24 11:26 DISTRESS adhesive tape AdvReac Unknown Rash Verified 07/21/24 11:26 Review of Systems Review of Systems ROS Unobtainable: All systems reviewed & are unremarkable except as noted in HPI and below Patient History Medical History (Updated 07/21/24 @ 14:23 by Radha Nunez DO) Asthma Migraines Congenital adrenal hypoplasia Social History Smoking Status: Never smoker Smoking Status: Never smoker alcohol intake frequency: other Exam Narrative Exam Narrative: GENERAL: Alert and oriented x three, mild distress. HEENT: Head normocephalic, atraumatic, EOMI, pupils reactive, face symmetric, moist mucous membranes, no facial droop NECK: Supple, full range of motion CARDIOVASCULAR: Regular rate and rhythm without murmurs, rubs or gallops. RESPIRATORY: Breath sounds equal bilaterally, no wheezes rales or rhonchi. ABDOMEN: Soft, nontender. Normoactive bowel sounds all 4 quadrants. No guarding or rebound, rigidity, no mass : No CVA tenderness EXTREMITIES: Normal range of motion, no clubbing or edema. Neurovascularly intact NEUROLOGICAL: Cranial nerves II through XII grossly intact. Moving all extremities SKIN: Warm, dry, no petechiae, no rashes or lesions. Initial Vital Signs Initial Vital Signs: Vital Signs Pulse Rate 83 07/21/24 11:23 Blood Pressure 145/84 H 07/21/24 11:23 Pulse Oximetry 100 07/21/24 11:23 Course Orders Ordered: ED Orders 07/21/24 11:28 CBC Auto Diff [Complete Blood Count AUTO DIFF] Stat CMP [Comprehensive Metabolic Panel] Stat Lipase Stat 07/21/24 11:39 Urine Microscopic Stat 07/21/24 14:19 [place] to [facility] [place] Stat Ondansetron HCl (Ondansetron 4 Mg/2 Ml Inj) 4 mg IV NOW PRN PRN Reason: Nausea And Vomiting Last Admin: 07/21/24 11:54 Dose: 4 mg Documented By: FARA Ondansetron HCl (Ondansetron 4 Mg Odt) 4 mg PO NOW PRN PRN Reason: Nausea And Vomiting Discontinued Medications Hydrocortisone (Hydrocortisone 100 Mg/2 Ml Vial) 100 mg IV NOW ONE Stop: 07/21/24 13:16 Last Admin: 07/21/24 13:23 Dose: 100 mg Documented By: ARNOLD Sodium Chloride (Normal Saline 0.9%) 1,000 mls @ 1,000 mls/hr IV BOLUS ONE Stop: 07/21/24 14:14 Last Infusion: 07/21/24 15:04 Dose: Infused Documented By: Admin: 07/21/24 13:24 Dose: 1,000 mls/hr Documented By: ARNOLD Ketorolac Tromethamine (Ketorolac 30 Mg/Ml Vial) 15 mg IV NOW ONE Stop: 07/21/24 13:16 Last Admin: 07/21/24 13:23 Dose: 15 mg Documented By: ARNOLD Vital Signs Vital signs: Vital Signs - 8 hr 07/21/24 11:23 07/21/24 11:23 07/21/24 11:26 Temperature 98.1 F Pulse Rate 83 75 Respiratory Rate 18 Blood Pressure 145/84 H 145/84 H Pulse Oximetry 100 100 Oxygen Delivery Method Room Air 07/21/24 11:30 07/21/24 11:30 07/21/24 13:04 Temperature Pulse Rate 79 Respiratory Rate 16 Blood Pressure 152/86 H 113/57 L Pulse Oximetry 100 Oxygen Delivery Method 07/21/24 13:04 07/21/24 13:30 07/21/24 13:30 Temperature Pulse Rate 88 67 Respiratory Rate 16 Blood Pressure 136/73 Pulse Oximetry 96 99 Oxygen Delivery Method 07/21/24 14:00 07/21/24 14:00 07/21/24 14:30 Temperature Pulse Rate 73 Respiratory Rate Blood Pressure 114/57 L 135/71 Pulse Oximetry 95 Oxygen Delivery Method 07/21/24 14:30 07/21/24 15:00 07/21/24 15:00 Temperature Pulse Rate 83 83 Respiratory Rate 16 16 Blood Pressure 124/62 Pulse Oximetry 97 93 Oxygen Delivery Method MDM - Nausea/Vomiting/Diarrhea Lab Data 07/21/24 11:28 07/21/24 11:28 Labs: Lab Results 07/21/24 07/21/24 Range/Units 11:28 11:39 WBC 16.5 H (4.5-11.0) X10^3/uL RBC 4.79 (4.0-5.2) X10^6/uL Hgb 14.4 (12.0-16.0) g/dL Hct 42.7 (36-46) % MCV 89.0 (80-100) fL MCH 30.0 (26-34) PG MCHC 33.7 (30-36) % RDW 13.6 (11.6-14.8) % Plt Count 388 (150-400) X10^3/uL Neut % (Auto) 82.7 H (50-75) % Lymph % (Auto) 11.2 L (25-40) % [place] % (Auto) 5.6 (3-14) % Eos % (Auto) 0.0 L (2-4) % Baso % (Auto) 0.5 (0-2) % Neut # (Auto) 71066 H (7370-4209) /uL Lymph # (Auto) 1900 (1700-0542) /uL [place] # (Auto) 900 (0-900) /uL Eos # (Auto) 0 (0-450) /uL Baso # (Auto) 100 (0-100) /uL Sodium 139 (137-145) mmol/L Potassium 4.0 (3.4-5.1) mmol/L Chloride 102 (98-107) mmol/L Carbon Dioxide 25 (22-32) mmol/L BUN 14 (7-17) mg/dL Creatinine 0.64 (0.52-1.04) mg/dL Estimated GFR > 60 (>60) mL/min BUN/Creatinine Ratio 21.9 (6-22) Glucose 119 H (70-99) mg/dL Calcium 9.6 (8.4-10.2) mg/dL Total Bilirubin 1.1 (0.2-1.3) mg/dL AST 72 H (14-36) IU/L ALT 42 H (<35) IU/L Alkaline Phosphatase 85 (38-126) U/L Total Protein 8.3 H (6.3-8.2) g/dL Albumin 4.8 (3.5-5.0) g/dL Globulin 3.5 (1.7-4.1) g/dL Albumin/Globulin Ratio 1.4 (1.0-2.8) Lipase 61 (23-300) U/L Urine RBC 1-5/hpf (0-5/HPF) Urine WBC 0-1/hpf (0-5/HPF) Ur Squamous Epith Cells 1-5 /hpf (0-5/HPF) Urine Bacteria Few (2-10) H (None) Ur Culture Indicated? Cult not indicated Vol Urine Centrifuged 8 Point of Care Testing Test Results Negative Urine Dip Bedside Urine Glucose Negative Bedside Urine Bilirubin - Negative Bedside Urine Ketone +++ 80 Urine Specific [place] 1.020 Bedside Urine Occult Blood +/- Bedside Urine pH 6.0 Bedside Urine Protein + 30 Bedside Urine Urobilinogen - Negative Bedside Urine Nitrite - Negative Bedside Urine Leukocytes - Negative Esterase MDM Narrative Medical decision making narrative: 28-year-old female history of congenital adrenal hyperplasia, migraines who sounds like she was developed migraine started having vomiting but then was not able to stop is concerned she might be stuck under adrenal crisis. Did give her shots Solu-Cortef but she was unsure of the dosage at 1:00 a.m. this morning. She states she does have a plan for dosing if she develops issues but did not bring it with her and does not recall the dosages. Patient notes migraine feels very similar to prior episodes no other red flag changes regarding her migraine. Patient is unsure if her normal baseline for blood pressure, she was not been hypotensive in the department. Labs show white count of 16.5 patient is chronically elevated on prior visits, hemoglobin and platelets are appropriate. Electrolytes including sodium potassium are appropriate glucose is 119 creatinine is normal AST ALT are slightly elevated at 72 and 42 total bilirubin is 1.1 lipase is 61. Point of care urine shows ketones, blood, protein. No nitrates or leuks. Urine microscopy shows 1-5 red cells 1 white cell 1-5 squamous few bacteria. Patient had fluids, Solu-Cortef and dose of Toradol and ondansetron. On recheck after fluids, Solu-Cortef, Toradol and ondansetron patient is feeling improved. They are asking about there is a way to get a more local primary care physician we will have [employer] meet with them. Patient and family at bedside state they believe she was all of her home medications available. They both feel comfortable with discharge home at this time. Patient did meet with [employer] about trying to set up with a more local primary care to make access to care easier. She has a upcoming follow up with her surgical dressing maker. Discharge Plan Departure Patient Disposition: Home Clinical Impression: Migraine, Vomiting Activity Restrictions/Additional Instructions: Follow up with your endocrinology team and primary care. Continue your home medications as prescribed, continue your steroids as per your endocrinology team. Please return for worsening symptoms fevers, passing out, persistent vomiting, black or bloody stools, rapidly worsening headaches, new changes to speech, has been or other new or concerning changes. Prescriptions: No Action albuterol sulfate [Ventolin HFA] 90 mcg/actuation HFA aerosol inhaler 2 puff INHALATION Q4-6H PRN (Reason: shortness of breath or wheezing) Qty: 8 0RF Proventil HFA 90 MCG/PUFF HFA aerosol inhaler 1 puff INH PRN Qty: 17 ibuprofen 200 MG tablet 200 mg PO PRN PRN (Reason: Pain, Mild) Qty: 0 norgestimate-ethinyl estradiol [Sprintec (28)] 1 EACH tablet 1 tab PO QDAY Qty: 0 levothyroxine 88 MCG tablet 0.088 mg PO QDAY Qty: 90 3RF mupirocin 2 % ointment 1 devyn Topical BID Qty: 22 0RF Solu-Cortef Act-O-Vial (PF) 100 MG/2 ML recon soln 100 mg IV PRN Qty: 1 0RF citalopram 10 mg tablet 10 mg PO DAILY Patient Comments: mother concerned patient rizatriptan [Maxalt] 10 MG tablet 10 mg PO QDAY PRN (Reason: Headache) Patient Comments: ran out. needs to refill hydrocortisone 10 mg tablet 20 mg PO DAILY PRN (Reason: stress) Qty: 30 0RF ondansetron 4 mg tablet,disintegrating 4 mg PO Q6-8H PRN (Reason: nausea and vomiting) Qty: 30 0RF dexamethasone 0.5 MG tablet 0.25 mg PO HS Referrals: Magui Paris ARNP [Primary Care Provider] - Stand Alone Forms: Patient Portal/API/Survey
[2024-07-21] MEDS: KETOROLAC 30 MG/ML VIAL 15 MG IV (13:23)
[2024-07-21] MEDS: HYDROCORTISONE 100 MG/2 ML VIAL IV (13:23)
[2024-07-21] MEDS: SODIUM CHLORIDE 0.9% 1,000 ML 1000 ML IV (13:24)
[2024-07-21 13:25] LABS: Add Manual Diff / Slide Review NO; Basophils Absolute Auto 100 /uL (0-100); Basophils Percent Auto 0.5 % (0-2); Eosinophils Absolute Auto 0 /uL (0-450); Hematocrit 42.7 % (36-46); Hemoglobin 14.4 g/dL (12.0-16.0); Lymphocytes Absolute Auto 1900 /uL (1100-4500); Lymphocytes Percent Auto 11.2 % (25-40); Mean Corpuscular HGB Conc 33.7 % (30-36); Monocytes Absolute Auto 900 /uL (0-900); Monocytes Percent Auto 5.6 % (3-14); Neutrophils Absolute Auto 13700 /uL (1500-7000); Neutrophils Percent Auto 82.7 % (50-75); Platelet Count 388 X10^3/uL (150-400); Red Blood Cell Count 4.79 X10^6/uL (4.0-5.2); Red Cell Distribution Width 13.6 % (11.6-14.8); White Blood Cell Count 16.5 X10^3/uL (4.5-11.0)
[2024-07-21 13:31] LABS: Alanine Aminotransferase 42 IU/L (<35); Albumin 4.8 g/dL (3.5-5.0); Albumin Globulin Ratio 1.4 (1.0-2.8); Alkaline Phosphatase 85 U/L (38-126); Aspartate Aminotransferase 72 IU/L (14-36); BUN Creatinine Ratio 21.9 (6-22); Bilirubin Total 1.1 mg/dL (0.2-1.3); Blood Urea Nitrogen 14 mg/dL (7-17); Calcium 9.6 mg/dL (8.4-10.2); Carbon Dioxide 25 mmol/L (22-32); Chloride 102 mmol/L (98-107); Estimated Glomerular Filt Rate > 60 mL/min (>60); Globulin 3.5 g/dL (1.7-4.1); Glucose 119 mg/dL (70-99); HEMOLYSIS 31 (0-50); Lipase 61 U/L (23-300); Sodium 139 mmol/L (137-145); Total Protein 8.3 g/dL (6.3-8.2)
--- NOTE | 2024-07-21 14:42 | CM.SWNOTE ---
ED BUFFERER Assessment Note: Pt is a 28yo female, resident of [place], is seen in the ED for vomitting and nausea, hx of congential adrenalhyperplasia. Pt lives in a house with roommates. Pt's Primary Care Provider is MARY Duncan at [facility] and insurance is [facility] and Medicaid. Reviewed chart and discussed with multidisciplinary team pt's medical status and initial discharge needs. BUFFERER consulted as pt requesting PCP follow up closer to pt geographically. BUFFERER entered room to meet with patient, introduced self and role. Present in the room is pt's mother, Karis. Patient was found in bed, able to answer some questions but very somnolent. Pt consented for mother to answer on her behalf, pt mother confirmed living situation and family support as close as [place]. Primary Provider list provided to pt mother, stated no preference for a provider other than a female provider in [place]. BUFFERER reviewed addresses on file; corrected addresses in EMR. Pt lives in [place] NOT [place] as initially indicated. Changed pt mother address as well, she lives in [place]. BUFFERER discussed that due to weekend hours, scheduling staff is limited and this BUFFERER will attempt to place referral for new PCP establishment in Clinic. Plan: Anticipating dc home with mother to transport, to establish PCP at [facility] as soon as available. GUS Ling
== END 2024-07-21 15:10 | disposition home or self-care (01) ==
PROVIDERS: Emergency Provider Emergency Medicine; PCP Nurse Practitioner Family
DX: G43.909 Migraine, unspecified, not intractable, without status migrainosus (principal); R11.10 Vomiting, unspecified
CPT/HCPCS: 36415; 80053; 81003; 81015; 81025; 83690; 85025; 96361; 96374; 96375; 99284; J1720; J1885; J2405